=== PATIENT | male | born 1960 | race Caucasian/White ===

== ENCOUNTER 2018-04-15 18:09 | Inpatient (IN) | payer MEDICAID ==
[~2018-04-15] VITALS: Ht 170.2 cm; Wt 81.8 kg
[~2018-04-15 18:09] MED LIST: ASPI-1265 PO; DIVA500T7 PO; FENO145T38 PO; GLYB-97 PO; INSU100V12 SQ; LOVA20TA2 PO; LOVA40TA2 PO; METF1000 PO; METH-360 PO; NITR0.4T48 SL; ONDA8TAB9 PO; PANT-47 PO; ZES10T PO
[2018-04-15 18:47] LABS: BASOPHILS % (AUTO) 0.4 % (0-1); EOSINOPHILS # (AUTO) 0.1 X10'3 (0-0.9); EOSINOPHILS % (AUTO) 1.1 % (0-6); HEMATOCRIT 39.2 % (42.0-52.0); HEMOGLOBIN 13.5 g/dl (14.0-17.9); LYMPHOCYTES # (AUTO) 1.8 X10'3 (1.1-4.8); LYMPHOCYTES % (AUTO) 17.2 % (21-51); MEAN CORPUSCULAR HEMOGLOBIN 30.9 PG (27.0-31.0); MEAN CORPUSCULAR HGB CONC 34.5 % (33.0-36.5); MEAN CORPUSCULAR VOLUME 89.7 FL (78-98); MEAN PLATELET VOLUME 9.6 FL (7.4-10.4); MONOCYTES # (AUTO) 0.5 X10'3 (0-0.9); MONOCYTES % (AUTO) 4.8 % (2-12); NEUTROPHILS % (AUTO) 76.5 % (42-75); PLATELET COUNT 235 X10'3 (140-440); RED BLOOD COUNT 4.37 X10'6 (4.70-6.10); RED CELL DISTRIBUTION WIDTH 14.4 % (11.5-14.5); WHITE BLOOD COUNT 10.4 X10'3 (4.5-11.0)
[2018-04-15 18:53] LABS: INR 1.1 INR; PARTIAL THROMBOPLASTIN TIME 24 SECONDS (22-32); PROTHROMBIN TIME 11.3 SECONDS (9.0-12.0)
[2018-04-15 18:55] LABS: ALANINE AMINOTRANSFERASE 39 U/L (12-78); ALBUMIN 3.5 G/DL (3.4-5.0); ALKALINE PHOSPHATASE 63 IU/L (46-116); ANION GAP 16 (8-16); ASPARTATE AMINO TRANSFERASE 39 U/L (10-37); BILIRUBIN,TOTAL 0.3 MG/DL (0.1-1.0); BLOOD UREA NITROGEN 28 MG/DL (7-18); BUN/CREATININE RATIO 9.6 (5.4-32.0); CALCIUM 9.4 MG/DL (8.5-10.1); CHLORIDE 102 MMOL/L (99-107); CREATININE 2.91 MG/DL (0.60-1.10); GLUCOSE 239 MG/DL (70-104); POTASSIUM 4.2 MMOL/L (3.5-5.1); SODIUM 140 MMOL/L (135-145); TOTAL CARBON DIOXIDE 21.7 MMOL/L (24-32); eGFR 22 ML/MIN
[2018-04-15 18:59] LABS: TROPONIN I 0.07 NG/ML (0.0-0.05)
[2018-04-15] MEDS ORDERED: aspirin 325mg tablet PO ONE (20:40)
[2018-04-15] MEDS ORDERED: ATOR40TA PO (21:04)
[2018-04-15] MEDS ORDERED: normal saline 1000ML IV soln IVB ONE (21:15)
[2018-04-15] MEDS ORDERED: mag hydrox/Alum hydrox/simeth 30ml oral suspension PO PRN (21:40)
[2018-04-15] MEDS ORDERED: ondansetron/PF 4mg/2ml inj IV PRN (21:40)
[2018-04-15] MEDS ORDERED: magnesium hydroxide 30ml (MOM) UD suspension PO PRN (21:40)
[2018-04-15] MEDS ORDERED: acetaminophen 325mg tablet PO PRN (21:40)
[2018-04-15] MEDS ORDERED: insulin Lispro (HumaLOG) vial - multi-dose SQ SCH (21:45)
[2018-04-15] MEDS ORDERED: MESSAGE TO PHARMACY PO ONE (21:45)
[2018-04-15] MEDS ORDERED: glucagon, human recombinant 1mg kit SUBCUT PRN (21:45)
[2018-04-15] MEDS ORDERED: dextrose 50%-water 50ml dispensing syringe IV PRN ×2 (21:45)
[2018-04-15] MEDS ORDERED: dextrose ORAL solution 15 GM/59 ML bottle PO PRN ×2 (21:45)
[2018-04-15 21:54] LABS: VALPROATE 124 UG/ML (50-100)
[2018-04-15 22:01] LABS: HEMOGLOBIN A1C 8.9 % (4.5-6.2)
[2018-04-15 22:41] VITALS: BP 112/49
[2018-04-15] MEDS: normal saline 1000ml 1,000 ML IV SCH (22:47)
[2018-04-16 02:00] VITALS: BP 129/60
[2018-04-16 05:59] LABS: BASOPHILS % (AUTO) 0.5 % (0-1); EOSINOPHILS # (AUTO) 0.2 X10'3 (0-0.9); EOSINOPHILS % (AUTO) 3.5 % (0-6); HEMATOCRIT 35.1 % (42.0-52.0); HEMOGLOBIN 11.8 g/dl (14.0-17.9); LYMPHOCYTES # (AUTO) 2.4 X10'3 (1.1-4.8); LYMPHOCYTES % (AUTO) 44.9 % (21-51); MEAN CORPUSCULAR HEMOGLOBIN 30.5 PG (27.0-31.0); MEAN CORPUSCULAR HGB CONC 33.7 % (33.0-36.5); MEAN CORPUSCULAR VOLUME 90.4 FL (78-98); MEAN PLATELET VOLUME 9.6 FL (7.4-10.4); MONOCYTES # (AUTO) 0.4 X10'3 (0-0.9); MONOCYTES % (AUTO) 7.9 % (2-12); NEUTROPHILS # (AUTO) 2.3 X10'3 (1.8-7.7); NEUTROPHILS % (AUTO) 43.2 % (42-75); PLATELET COUNT 190 X10'3 (140-440); RED BLOOD COUNT 3.88 X10'6 (4.70-6.10); RED CELL DISTRIBUTION WIDTH 14.1 % (11.5-14.5); WHITE BLOOD COUNT 5.2 X10'3 (4.5-11.0)
[2018-04-16 06:00] VITALS: BP 119/62
[2018-04-16 06:17] LABS: ALANINE AMINOTRANSFERASE 34 U/L (12-78); ALBUMIN 2.8 G/DL (3.4-5.0); ALBUMIN/GLOBULIN RATIO 0.9 (1.1-1.5); ALKALINE PHOSPHATASE 46 IU/L (46-116); ANION GAP 7 (8-16); ASPARTATE AMINO TRANSFERASE 29 U/L (10-37); BILIRUBIN,TOTAL 0.3 MG/DL (0.1-1.0); BLOOD UREA NITROGEN 29 MG/DL (7-18); BUN/CREATININE RATIO 16.4 (5.4-32.0); CALCIUM 8.8 MG/DL (8.5-10.1); CHLORIDE 107 MMOL/L (99-107); CHOLESTEROL 141 MG/DL (0-200); CREATININE 1.77 MG/DL (0.60-1.10); GLUCOSE 88 MG/DL (70-104); HDL CHOLESTEROL 28 MG/DL (35-60); LDL CHOLESTEROL 84 MG/DL (50-100); POTASSIUM 4.3 MMOL/L (3.5-5.1); SODIUM 142 MMOL/L (135-145); TOTAL CARBON DIOXIDE 28.4 MMOL/L (24-32); TOTAL PROTEIN 5.8 G/DL (6.4-8.2); TRIGLYCERIDES 156 MG/DL (20-135); eGFR 40 ML/MIN
[2018-04-16] MEDS: normal saline 1000ml 1,000 ML IV SCH ×3 (07:55→20:51)
[2018-04-16] MEDS: atorvastatin 20mg tablet PO SCH (07:57)
[2018-04-16] MEDS: divalproex sodium 500mg tablet.DR PO SCH ×3 (07:57→20:12)
[2018-04-16] MEDS: fenofibrate 145mg tablet PO SCH (07:57)
[2018-04-16] MEDS: lisinopril 10 MG tablet PO SCH (07:58)
[2018-04-16] MEDS: heparin, porcine 5000 units/ml vial SQ SCH ×2 (07:59→20:12)
[2018-04-16] MEDS ORDERED: aspirin 81mg tab.chew PO SCH (08:00)
[2018-04-16 10:00] VITALS: BP 113/55
[2018-04-16 14:00] VITALS: BP 136/68
[2018-04-16 18:00] VITALS: BP 119/56
[2018-04-16] MEDS ORDERED: aspirin 325mg tablet PO ONE (18:15)
[2018-04-16] MEDS ORDERED: insulin glargine (Lantus) pen - multi-dose SQ SCH (21:00)
[2018-04-16 22:00] VITALS: BP 129/63
[2018-04-17 06:00] VITALS: BP 128/71
[2018-04-17 06:03] LABS: BASOPHILS % (AUTO) 0.6 % (0-1); EOSINOPHILS # (AUTO) 0.1 X10'3 (0-0.9); EOSINOPHILS % (AUTO) 3.4 % (0-6); HEMATOCRIT 31.8 % (42.0-52.0); LYMPHOCYTES % (AUTO) 53.6 % (21-51); MEAN CORPUSCULAR HEMOGLOBIN 30.8 PG (27.0-31.0); MEAN CORPUSCULAR HGB CONC 34.5 % (33.0-36.5); MEAN CORPUSCULAR VOLUME 89.4 FL (78-98); MEAN PLATELET VOLUME 9.6 FL (7.4-10.4); MONOCYTES # (AUTO) 0.2 X10'3 (0-0.9); MONOCYTES % (AUTO) 5.7 % (2-12); NEUTROPHILS # (AUTO) 1.4 X10'3 (1.8-7.7); NEUTROPHILS % (AUTO) 36.7 % (42-75); PLATELET COUNT 163 X10'3 (140-440); RED BLOOD COUNT 3.56 X10'6 (4.70-6.10); RED CELL DISTRIBUTION WIDTH 13.9 % (11.5-14.5); WHITE BLOOD COUNT 3.8 X10'3 (4.5-11.0)
[2018-04-17 06:29] LABS: ALANINE AMINOTRANSFERASE 24 U/L (12-78); ALBUMIN 2.5 G/DL (3.4-5.0); ALBUMIN/GLOBULIN RATIO 0.9 (1.1-1.5); ALKALINE PHOSPHATASE 48 IU/L (46-116); ANION GAP 8 (8-16); ASPARTATE AMINO TRANSFERASE 21 U/L (10-37); BILIRUBIN,TOTAL 0.2 MG/DL (0.1-1.0); BLOOD UREA NITROGEN 20 MG/DL (7-18); CHLORIDE 106 MMOL/L (99-107); CREATININE 1.05 MG/DL (0.60-1.10); GLUCOSE 128 MG/DL (70-104); POTASSIUM 3.9 MMOL/L (3.5-5.1); SODIUM 141 MMOL/L (135-145); TOTAL CARBON DIOXIDE 27.1 MMOL/L (24-32); TOTAL PROTEIN 5.4 G/DL (6.4-8.2); eGFR 73 ML/MIN
[2018-04-17] MEDS: atorvastatin 20mg tablet PO SCH (07:34)
[2018-04-17] MEDS: fenofibrate 145mg tablet PO SCH (07:34)
[2018-04-17] MEDS: divalproex sodium 500mg tablet.DR PO SCH (07:34)
[2018-04-17] MEDS: normal saline 1000ml 1,000 ML IV SCH (07:38)
[2018-04-17] MEDS: heparin, porcine 5000 units/ml vial SQ SCH (07:39)
[2018-04-17 07:40] VITALS: BP 157/86
[2018-04-17] MEDS ORDERED: aspirin 325mg tablet PO SCH (08:30)
[2018-04-17] MEDS: lisinopril 10 MG tablet PO SCH (08:53)
[2018-04-17] MEDS ORDERED: ASPI-1 PO (09:01)
[2018-04-17] MEDS ORDERED: ATOR80TA PO (09:01)
[2018-04-17 10:00] VITALS: BP 136/71
== END 2018-04-17 10:37 | disposition home or self-care (01) | DRG 45 ==
LOC: ER 18:10 → ED HOLD 21:39 → ORTHO 4S 22:26
PROVIDERS: ADMIT Internal Medicine; ATTEND Family Medicine
DX: I63.9 Cerebral infarction, unspecified (principal); N17.9 Acute kidney failure, unspecified; E11.22 Type 2 diabetes mellitus with diabetic chronic kidney disease; E11.65 Type 2 diabetes mellitus with hyperglycemia; E86.0 Dehydration; F15.10 Other stimulant abuse, uncomplicated; I12.9 Hypertensive chronic kidney disease with stage 1 through stage 4 chronic kidney disease, or unspecified chronic kidney disease; E78.00 Pure hypercholesterolemia, unspecified; E78.5 Hyperlipidemia, unspecified; F17.210 Nicotine dependence, cigarettes, uncomplicated; G40.909 Epilepsy, unspecified, not intractable, without status epilepticus; N18.9 Chronic kidney disease, unspecified; Z59.0 Homelessness; Z82.3 Family history of stroke; Z91.14 Patient's other noncompliance with medication regimen
CPT/HCPCS: 36415; 70450; 70544; 70551; 71045; 80053; 80061; 80164; 82948; 83036; 84484; 85025; 85610; 85730; 87070; 93306; 93880; 96360; 97116; 97162; 97530; 99285; J1644; J1815; J7030

== ENCOUNTER 2019-05-25 18:01 | Emergency (ER) | payer MEDICAID ==
[~2019-05-25] VITALS: Ht 167.6 cm; Wt 67.3 kg
[~2019-05-25 18:01] MED LIST changes: +ASPI-1 PO; -ASPI-1265 PO; +CLOP75TA9 PO; +DIVA-76 PO; -DIVA500T7 PO; -FENO145T38 PO; -LOVA20TA2 PO; -LOVA40TA2 PO; -METH-360 PO; -NITR0.4T48 SL; -ONDA8TAB9 PO; -PANT-47 PO
[2019-05-25] MEDS ORDERED: ACET-3068 PO (20:37)
[2019-05-25] MEDS ORDERED: HYDROcodone/acetaminophen 5mg/325mg tablet PO ONE (20:40)
[2019-05-25] MEDS ORDERED: ibuprofen tablet 400 MG TABLET PO ONE (20:40)
[2019-05-25 21:02] VITALS: BP 154/84
== END 2019-05-25 21:03 | disposition home or self-care (01) ==
LOC: ER 18:02
DX: S42.031A Displaced fracture of lateral end of right clavicle, initial encounter for closed fracture (principal); E78.00 Pure hypercholesterolemia, unspecified; I10 Essential (primary) hypertension; E11.9 Type 2 diabetes mellitus without complications; F15.90 Other stimulant use, unspecified, uncomplicated; Z79.899 Other long term (current) drug therapy; Z79.4 Long term (current) use of insulin; V19.88XA Pedal cyclist (driver) (passenger) injured in other specified transport accidents, initial encounter; Y93.55 Activity, bike riding; Y92.413 State road as the place of occurrence of the external cause; Y99.9 Unspecified external cause status
CPT/HCPCS: 29105; 71045; 72040; 73030; 99284

== ENCOUNTER → 2019-06-18 | Outpatient (CLI) | payer MEDICAID ==
[~2019-06-18] MED LIST changes: +ACET-3068 PO
[2019-06-18 12:13] VITALS: BP 154/70
== END | disposition home or self-care (01) ==
LOC: ORTHO 11:47
PROVIDERS: ATTEND Orthopaedic Surgery
DX: S42.031D Displaced fracture of lateral end of right clavicle, subsequent encounter for fracture with routine healing (principal); M25.711 Osteophyte, right shoulder; I10 Essential (primary) hypertension; E11.9 Type 2 diabetes mellitus without complications; X58.XXXD Exposure to other specified factors, subsequent encounter
CPT/HCPCS: 73000; G0463

== ENCOUNTER 2019-08-27 12:13 | Outpatient (CLI) | payer MEDICAID ==
[~2019-08-27 12:13] MED LIST changes: -ACET-3068 PO
== END 2019-08-27 13:30 | disposition home or self-care (01) ==
LOC: ORTHO 12:13
PROVIDERS: ATTEND Orthopaedic Surgery
DX: S42.031D Displaced fracture of lateral end of right clavicle, subsequent encounter for fracture with routine healing (principal)
CPT/HCPCS: 73000; G0463

== ENCOUNTER 2019-11-05 15:06 | Emergency (ER) | payer MEDICAID ==
[~2019-11-05] VITALS: Ht 167.6 cm; Wt 68.2 kg
[2019-11-05 15:21] VITALS: BP 164/89
[2019-11-05] MEDS ORDERED: ibuprofen 200mg tablet PO ONE (15:50)
[2019-11-05] MEDS ORDERED: IBUP-1984 PO (16:26)
[2019-11-05] MEDS ORDERED: ACET-75 PO (16:26)
== END 2019-11-05 16:34 | disposition home or self-care (01) ==
LOC: ER 15:07
DX: S80.212A Abrasion, left knee, initial encounter (principal); I10 Essential (primary) hypertension; E78.00 Pure hypercholesterolemia, unspecified; E11.9 Type 2 diabetes mellitus without complications; Z79.82 Long term (current) use of aspirin; Z79.899 Other long term (current) drug therapy; Z79.4 Long term (current) use of insulin; V29.9XXA Motorcycle rider (driver) (passenger) injured in unspecified traffic accident, initial encounter; Y93.I9 Activity, other involving external motion; Y92.89 Other specified places as the place of occurrence of the external cause; Y99.8 Other external cause status
CPT/HCPCS: 29505; 73564; 99284

== ENCOUNTER 2019-11-17 09:48 | Outpatient (CLI) | payer MEDICAID ==
[~2019-11-17 09:48] MED LIST changes: +ACET-75 PO
== END 2019-11-17 09:55 | disposition home or self-care (01) ==
LOC: ORTHO 09:48
PROVIDERS: ATTEND Nurse Practitioner
DX: S42.031D Displaced fracture of lateral end of right clavicle, subsequent encounter for fracture with routine healing (principal); X58.XXXD Exposure to other specified factors, subsequent encounter
CPT/HCPCS: 73000; G0463

== ENCOUNTER 2021-08-15 17:13 | Inpatient (IN) | payer MEDICAID ==
[~2021-08-15] VITALS: Ht 167.6 cm; Wt 63.6 kg
[~2021-08-15 17:13] MED LIST changes: -ACET-75 PO
[2021-08-15 18:15] LABS: BASOPHILS # (AUTO) 0.1 X10'3 (0-0.2); BASOPHILS % (AUTO) 0.8 % (0-1); EOSINOPHILS # (AUTO) 0.1 X10'3 (0-0.9); EOSINOPHILS % (AUTO) 0.7 % (0-6); HEMATOCRIT 38.5 % (42.0-52.0); HEMOGLOBIN 12.8 g/dl (14.0-17.9); LYMPHOCYTES # (AUTO) 0.7 X10'3 (1.1-4.8); LYMPHOCYTES % (AUTO) 5.9 % (21-51); MEAN CORPUSCULAR HEMOGLOBIN 30.7 PG (27.0-31.0); MEAN CORPUSCULAR HGB CONC 33.2 g/dL (33.0-36.5); MEAN CORPUSCULAR VOLUME 92.5 FL (78-98); MEAN PLATELET VOLUME 8.9 FL (7.4-10.4); MONOCYTES # (AUTO) 0.7 X10'3 (0-0.9); MONOCYTES % (AUTO) 6.1 % (2-12); NEUTROPHILS # (AUTO) 10.4 X10'3 (1.8-7.7); NEUTROPHILS % (AUTO) 86.5 % (42-75); PLATELET COUNT 201 X10'3 (140-440); RED BLOOD COUNT 4.17 X10'6 (4.70-6.10); RED CELL DISTRIBUTION WIDTH 13.9 % (11.5-14.5); WHITE BLOOD COUNT 12.1 X10'3 (4.5-11.0)
[2021-08-15 18:30] LABS: ALANINE AMINOTRANSFERASE 54 U/L (12-78); ALBUMIN 1.9 G/DL (3.4-5.0); ALBUMIN/GLOBULIN RATIO 0.5 (1.1-1.5); ALKALINE PHOSPHATASE 176 IU/L (46-116); ANION GAP 9 (8-16); ASPARTATE AMINO TRANSFERASE 40 U/L (10-37); BILIRUBIN,TOTAL 0.6 MG/DL (0.1-1.0); BLOOD UREA NITROGEN 37 MG/DL (7-18); BUN/CREATININE RATIO 28.7 (5.4-32.0); CALCIUM 8.1 MG/DL (8.5-10.1); CHLORIDE 100 MMOL/L (99-107); CREATININE 1.29 MG/DL (0.60-1.10); GLUCOSE 362 MG/DL (70-104); MAGNESIUM 1.9 MG/DL (1.5-2.4); POTASSIUM 4.5 MMOL/L (3.5-5.1); SODIUM 133 MMOL/L (135-145); TOTAL PROTEIN 5.5 G/DL (6.4-8.2); eGFR 57 ML/MIN
[2021-08-15] MEDS ORDERED: vancomycin/NS 1 GM ADD-VANTAGE 250 ML IV ONE (22:05)
[2021-08-15] MEDS ORDERED: cefepime 1GM/NS ADD-VANTAGE 100 ML IV ONE (22:05)
[2021-08-15] MEDS ORDERED: cefepime 1GM in D5W 50mL 50 ML IV ONE (22:07)
[2021-08-15 22:16] LABS: CLARITY,URINE SLIGHTLY CLOUDY (Clear); COLOR,URINE YELLOW (Yellow); GLUCOSE, URINE >=1000 mg/dl (Neg); KETONES,URINE NEGATIVE (Neg); LEUKOCYTE ESTERASE ,URINE NEGATIVE (Neg); NITRITES, URINE NEGATIVE (Neg); OCCULT BLOOD,URINE TRACE-LYSED (Neg); PROTEIN,URINE TRACE mg/dl (Neg); UA COLLECTION TYPE CLN CATCH MIDSTREAM; UROBILINOGEN,URINE 0.2 E.U/dL (0.2-1.0)
[2021-08-15 22:28] LABS: BACTERIA,URINE FEW /HPF (Neg); MUCUS STRANDS FEW /LPF (Neg); SQUAMOUS EPITHELIAL CELL,UR FEW /LPF (FEW)
[2021-08-15 22:29] LABS: RBC,URINE 0-2 /HPF (0-2); WBC,URINE 0-4 /HPF (0-4)
[2021-08-15] MEDS ORDERED: QUET400T PO (23:30)
[2021-08-15] MEDS ORDERED: CHLO25CA10 PO (23:30)
[2021-08-15 23:53] LABS: CREATINE KINASE 196 U/L (39-308)
[2021-08-16] VITALS (10 sets, daily range): BP systolic 102–121; BP diastolic 59–76
[2021-08-16] MEDS ORDERED: bisacodyl 10mg suppository rectal RC PRN (00:15)
[2021-08-16] MEDS ORDERED: acetaminophen 325mg tablet PO PRN ×2 (00:15)
[2021-08-16] MEDS ORDERED: HYDROcodone/acetaminophen 5mg/325mg tablet PO PRN (00:15)
[2021-08-16] MEDS ORDERED: diphenhydrAMINE 50 mg/ml inj IV PRN (00:15)
[2021-08-16] MEDS ORDERED: acetaminophen 650mg rectal suppository RC PRN (00:15)
[2021-08-16] MEDS ORDERED: MESSAGE TO PHARMACY PO ONE (00:15)
[2021-08-16] MEDS ORDERED: ondansetron/PF 4mg/2ml inj IV PRN (00:15)
[2021-08-16] MEDS ORDERED: ondansetron 4mg rapidly disintigrating tab PO PRN (00:15)
[2021-08-16] MEDS ORDERED: morphine 2 MG/ML inj. syringe IV PRN (00:15)
[2021-08-16] MEDS ORDERED: HYDROmorphone inj. 0.5 MG/0.5 ML DISP.SYRIN IV PRN (00:15)
[2021-08-16] MEDS ORDERED: mag hydrox/Alum hydrox/simeth 30ml oral suspension PO PRN (00:15)
[2021-08-16] MEDS ORDERED: dextrose ORAL solution 15 GM/59 ML bottle PO PRN ×2 (00:15)
[2021-08-16] MEDS ORDERED: dextrose 50%-water 50ml dispensing syringe IV PRN ×2 (00:15)
[2021-08-16] MEDS ORDERED: TETanus/Pertussis (Acell)/Diphther VAC/PF (Tdap-Adult) 0.5ml syringe IMVAC ONE (00:15)
[2021-08-16] MEDS ORDERED: glucagon, human recombinant 1mg kit SUBCUT PRN (00:15)
[2021-08-16] MEDS ORDERED: diphenhydrAMINE 25mg capsule PO PRN (00:15)
[2021-08-16] MEDS ORDERED: magnesium hydroxide 30ml (MOM) UD suspension PO PRN (00:15)
[2021-08-16 00:49] LABS: HEMOGLOBIN A1C 12.1 % (4.5-6.2)
[2021-08-16] MEDS: normal saline 1000ml 1,000 ML IV SCH ×2 (00:50→00:51)
[2021-08-16 00:55] LABS: PHOSPHORUS 3.6 MG/DL (2.3-4.5); TROPONIN I 0.05 NG/ML (0.0-0.05)
[2021-08-16 00:57] LABS: PARTIAL THROMBOPLASTIN TIME 27 SECONDS (22-32)
[2021-08-16] MEDS: MESSAGE TO NURSING PO SCH (01:30)
--- NOTE | 2021-08-16 01:46 | NUR ---
PT BACK FROM CTA, INTO THE RESTROOM WITH ASSISTANCE TO HAVE BM
[2021-08-16] MEDS ORDERED: LIRA0.6P2 SUBCUT (01:56)
[2021-08-16] MEDS ORDERED: INSU100I31 SQ (01:56)
[2021-08-16 02:05] LABS: URINE AMPHETAMINE SCREEN POSITIVE (Neg); URINE BARBITUATE SCREEN NEGATIVE (Neg); URINE BENZODIAZEPINES SCREEN NEGATIVE (Neg); URINE CANNABINOID SCREEN NEGATIVE (Neg); URINE COCAINE SCREEN NEGATIVE (Neg); URINE METHADONE SCREEN NEGATIVE (Neg); URINE OPIATE SCREEN NEGATIVE (Neg); URINE PHENCYCLIDINE SCREEN NEGATIVE (Neg)
--- NOTE | 2021-08-16 02:18 | NUR ---
PT'S BED ASSIGNED, 3013A, NOT CLEAN, PER PCU STAFF, WILL TRANSPORT PT WHEN ROOM IS CLEAN
[2021-08-16] MEDS: HYDROcodone/acetaminophen 10/325mg tab PO PRN ×3 (02:28→19:48)
[2021-08-16] MEDS ORDERED: heparin 10,000 units/1 ML INJ IV ONE (03:05)
[2021-08-16] MEDS ORDERED: heparin 25,000 UNIT/250ml bag 250 ML IV SCH (03:05)
[2021-08-16] MEDS ORDERED: heparin 10,000 units/1 ML INJ IV PRN (03:05)
--- NOTE | 2021-08-16 03:45 | NUR ---
patient received to floor. Patient self transfer to bed. He appears in pain. Report pain to R leg but states having previously been given pain med. patient attached to tele monitor. Physical and 2 RN skin assessment done and documented. MRSA and blood specimen collected. Blood sugar assessed. patient is currently laying in bed. Call light and overbed table within reach. Bed in low position.Instructed patient to call for help as needed. Will continue monitor.
--- NOTE | 2021-08-16 06:14 | NUR ---
Patient in room PCU 3013. I have received report from Berta BARROW and had the opportunity to ask questions and assume patient care.
[2021-08-16] MEDS ORDERED: heparin, porcine 5000 units/ml vial SQ SCH (08:00)
[2021-08-16] MEDS: docusate sod 100mg capsule PO SCH ×2 (08:00→19:39)
[2021-08-16] MEDS: pantoprazole 40mg Tablet.DR PO SCH (08:00)
[2021-08-16] MEDS ORDERED: piperacillin/tazo 4.5gm/100ml 100 ML IV SCH (08:00)
[2021-08-16 08:15] LABS: BASOPHILS # (AUTO) 0.1 X10'3 (0-0.2); EOSINOPHILS # (AUTO) 0.2 X10'3 (0-0.9); EOSINOPHILS % (AUTO) 1.4 % (0-6); HEMATOCRIT 36.5 % (42.0-52.0); LYMPHOCYTES % (AUTO) 8.2 % (21-51); MEAN CORPUSCULAR HEMOGLOBIN 30.6 PG (27.0-31.0); MEAN CORPUSCULAR HGB CONC 32.8 g/dL (33.0-36.5); MEAN CORPUSCULAR VOLUME 93.1 FL (78-98); MEAN PLATELET VOLUME 9.3 FL (7.4-10.4); MONOCYTES # (AUTO) 0.8 X10'3 (0-0.9); MONOCYTES % (AUTO) 6.8 % (2-12); NEUTROPHILS % (AUTO) 82.6 % (42-75); PLATELET COUNT 193 X10'3 (140-440); RED BLOOD COUNT 3.92 X10'6 (4.70-6.10); RED CELL DISTRIBUTION WIDTH 14.3 % (11.5-14.5); WHITE BLOOD COUNT 12.1 X10'3 (4.5-11.0)
[2021-08-16 08:31] LABS: ALANINE AMINOTRANSFERASE 50 U/L (12-78); ALBUMIN 1.8 G/DL (3.4-5.0); ALBUMIN/GLOBULIN RATIO 0.5 (1.1-1.5); ALKALINE PHOSPHATASE 204 IU/L (46-116); ANION GAP 9 (8-16); ASPARTATE AMINO TRANSFERASE 30 U/L (10-37); BILIRUBIN,TOTAL 0.5 MG/DL (0.1-1.0); BLOOD UREA NITROGEN 32 MG/DL (7-18); BUN/CREATININE RATIO 28.6 (5.4-32.0); CHLORIDE 103 MMOL/L (99-107); CREATININE 1.12 MG/DL (0.60-1.10); GLUCOSE 282 MG/DL (70-104); SODIUM 135 MMOL/L (135-145); TOTAL CARBON DIOXIDE 22.9 MMOL/L (24-32); TOTAL PROTEIN 5.4 G/DL (6.4-8.2); eGFR 67 ML/MIN
[2021-08-16] MEDS ORDERED: vancomycin/NS 1 GM ADD-VANTAGE 250 ML IV SCH ×2 (10:00→22:00)
--- NOTE | 2021-08-16 10:15 | NUR ---
DM Consult: Pt admit DX RLE cellulitis, meth abuse, and T2DM uncontrolled A1C 12.1 per EMR. Pt seen by BENIGNO this AM; pt reports has had minor education in past regarding DM is agreeable to written ed but would like verbal review at later time. BENIGNO d/w RN regarding carb controlled diet this admit and glycemic protocol if MD agreeable as currently ALIEO w/ arron active in EMR AM Glu 282mg/dl down from 362mg/dl on admit. Pt will benefit from DM Ed reinforcement prior to discharge this admit. Addendum: 08/16/21 at [address] Amended: Links added. Addendum: 08/16/21 at [address] DM Consult: Pt admit DX RLE cellulitis, meth abuse, and T2DM uncontrolled A1C 12.1 per EMR. Pt takes metformin BID, Lantus BID, and daily Victoza per EMR. Pt seen by RD this AM; pt reports has had minor education in past regarding DM is agreeable to written ed but would like verbal review at later time. BENIGNO d/w RN regarding carb controlled diet this admit and glycemic protocol if MD agreeable as currently NPO w/ humalog active in EMR AM Glu 282mg/dl down from 362mg/dl on admit. Pt will benefit from DM Ed reinforcement prior to discharge this admit.
[2021-08-16] MEDS: insulin Lispro (HumaLOG) vial - multi-dose SQ SCH ×3 (10:19→19:58)
[2021-08-16] MEDS: apixaban 5mg tablet PO SCH ×2 (10:23→19:38)
[2021-08-16] MEDS: furosemide 20 MG/2 ML vial IV SCH ×2 (12:52→19:38)
[2021-08-16] MEDS: ceFAZolin/D5W- 1GM premix 50 ML IV SCH (12:58)
--- NOTE | 2021-08-16 18:21 | NUR ---
Problems reprioritized. Patient report given, questions answered & plan of care reviewed with Berta BARROW.
[2021-08-16] MEDS: carVEDilol 3.125mg tablet PO SCH (19:38)
[2021-08-16] MEDS ORDERED: temazepam 15mg capsule PO PRN (21:00)
--- NOTE | 2021-08-16 22:08 | NUR ---
patient nighttime BS 158. Per protocol no corrective insulin needed at this time.
[2021-08-17] MEDS: HYDROcodone/acetaminophen 10/325mg tab PO PRN (00:54)
[2021-08-17] MEDS: ceFAZolin/D5W- 1GM premix 50 ML IV SCH ×4 (00:55→23:44)
[2021-08-17] MEDS: MESSAGE TO NURSING PO SCH (01:35)
[2021-08-17 02:00] VITALS: BP 93/61
[2021-08-17 06:00] VITALS: BP 96/58
--- NOTE | 2021-08-17 06:23 | NUR ---
Patient in room PCU 3013. I have received report from PUSHPA Willard and had the opportunity to ask questions and assume patient care.
--- NOTE | 2021-08-17 06:25 | NUR ---
Problems reprioritized. Patient report given, questions answered & plan of care reviewed with PUSHPA Meek.
[2021-08-17 06:34] LABS: BASOPHILS # (AUTO) 0.1 X10'3 (0-0.2); BASOPHILS % (AUTO) 0.6 % (0-1); EOSINOPHILS # (AUTO) 0.2 X10'3 (0-0.9); EOSINOPHILS % (AUTO) 1.7 % (0-6); HEMATOCRIT 34.1 % (42.0-52.0); HEMOGLOBIN 11.4 g/dl (14.0-17.9); LYMPHOCYTES # (AUTO) 1.2 X10'3 (1.1-4.8); LYMPHOCYTES % (AUTO) 13.3 % (21-51); MEAN CORPUSCULAR HEMOGLOBIN 31.2 PG (27.0-31.0); MEAN CORPUSCULAR HGB CONC 33.6 g/dL (33.0-36.5); MEAN CORPUSCULAR VOLUME 92.9 FL (78-98); MEAN PLATELET VOLUME 9.2 FL (7.4-10.4); MONOCYTES # (AUTO) 0.7 X10'3 (0-0.9); MONOCYTES % (AUTO) 8.2 % (2-12); NEUTROPHILS # (AUTO) 6.9 X10'3 (1.8-7.7); NEUTROPHILS % (AUTO) 76.2 % (42-75); PLATELET COUNT 210 X10'3 (140-440); RED BLOOD COUNT 3.67 X10'6 (4.70-6.10); RED CELL DISTRIBUTION WIDTH 14.3 % (11.5-14.5); WHITE BLOOD COUNT 9.1 X10'3 (4.5-11.0)
[2021-08-17 07:19] LABS: ANION GAP 7 (8-16); BLOOD UREA NITROGEN 31 MG/DL (7-18); BUN/CREATININE RATIO 24.8 (5.4-32.0); CHLORIDE 103 MMOL/L (99-107); CREATININE 1.25 MG/DL (0.60-1.10); GLUCOSE 111 MG/DL (70-104); POTASSIUM 3.8 MMOL/L (3.5-5.1); SODIUM 135 MMOL/L (135-145); TOTAL CARBON DIOXIDE 25.5 MMOL/L (24-32)
[2021-08-17 07:20] LABS: ALANINE AMINOTRANSFERASE 38 U/L (12-78); ALBUMIN 1.6 G/DL (3.4-5.0); ALBUMIN/GLOBULIN RATIO 0.5 (1.1-1.5); ALKALINE PHOSPHATASE 115 IU/L (46-116); ASPARTATE AMINO TRANSFERASE 21 U/L (10-37); BILIRUBIN,TOTAL 0.5 MG/DL (0.1-1.0); CALCIUM 8.1 MG/DL (8.5-10.1); CHOL/HDL RATIO 4.1 (0.00-4.99); CHOLESTEROL 119 MG/DL (0-200); HDL CHOLESTEROL 29 MG/DL (35-60); LDL CHOLESTEROL 73 MG/DL (50-100); TOTAL PROTEIN 5.1 G/DL (6.4-8.2); TRIGLYCERIDES 82 MG/DL (20-135); eGFR 59 ML/MIN
[2021-08-17] MEDS: pantoprazole 40mg Tablet.DR PO SCH (08:29)
[2021-08-17] MEDS: apixaban 5mg tablet PO SCH ×2 (08:29→19:15)
[2021-08-17] MEDS: furosemide 20 MG/2 ML vial IV SCH ×2 (08:29→19:15)
[2021-08-17] MEDS: carVEDilol 3.125mg tablet PO SCH ×2 (08:32→19:15)
[2021-08-17] MEDS: lisinopril 2.5mg tablet PO SCH (08:32)
[2021-08-17] MEDS: docusate sod 100mg capsule PO SCH ×2 (08:33→19:15)
[2021-08-17] MEDS: insulin Lispro (HumaLOG) vial - multi-dose SQ SCH ×3 (08:47→19:13)
[2021-08-17] MEDS: spironolactone 25 MG tablet PO SCH (08:48)
[2021-08-17] MEDS ORDERED: VANCOMYCIN LEVEL IV ONE (09:30)
[2021-08-17] MEDS: morphine 2 MG/ML inj. syringe IV PRN ×2 (09:50→15:51)
[2021-08-17 11:00] VITALS: BP 109/68
[2021-08-17 15:00] VITALS: BP 96/55
[2021-08-17 18:00] VITALS: BP 93/58
--- NOTE | 2021-08-17 18:18 | NUR ---
Patient in room PCU 3013A. I have received report from PUSHPA Meek and had the opportunity to ask questions and assume patient care.
--- NOTE | 2021-08-17 18:20 | NUR ---
Problems reprioritized. Patient report given, questions answered & plan of care reviewed with PUSHPA Tran.
[2021-08-17 22:00] VITALS: BP 102/64
[2021-08-18 02:00] VITALS: BP 109/59
--- NOTE | 2021-08-18 06:02 | NUR ---
Problems reprioritized. Patient report given, questions answered & plan of care reviewed with PUSHPA Meek.
--- NOTE | 2021-08-18 06:16 | NUR ---
Patient in room PCU 3013. I have received report from PUSHPA Tran and had the opportunity to ask questions and assume patient care.
[2021-08-18 06:26] LABS: BASOPHILS # (AUTO) 0.1 X10'3 (0-0.2); BASOPHILS % (AUTO) 0.8 % (0-1); EOSINOPHILS # (AUTO) 0.1 X10'3 (0-0.9); EOSINOPHILS % (AUTO) 0.7 % (0-6); HEMATOCRIT 35.3 % (42.0-52.0); HEMOGLOBIN 11.7 g/dl (14.0-17.9); LYMPHOCYTES # (AUTO) 1.3 X10'3 (1.1-4.8); LYMPHOCYTES % (AUTO) 15.9 % (21-51); MEAN CORPUSCULAR HEMOGLOBIN 30.9 PG (27.0-31.0); MEAN CORPUSCULAR HGB CONC 33.2 g/dL (33.0-36.5); MEAN CORPUSCULAR VOLUME 93.1 FL (78-98); MEAN PLATELET VOLUME 8.9 FL (7.4-10.4); MONOCYTES % (AUTO) 11.6 % (2-12); PLATELET COUNT 258 X10'3 (140-440); RED BLOOD COUNT 3.79 X10'6 (4.70-6.10); RED CELL DISTRIBUTION WIDTH 14.5 % (11.5-14.5); WHITE BLOOD COUNT 8.4 X10'3 (4.5-11.0)
[2021-08-18 06:45] LABS: ALANINE AMINOTRANSFERASE 47 U/L (12-78); ALBUMIN 1.6 G/DL (3.4-5.0); ALBUMIN/GLOBULIN RATIO 0.4 (1.1-1.5); ALKALINE PHOSPHATASE 202 IU/L (46-116); ANION GAP 8 (8-16); ASPARTATE AMINO TRANSFERASE 47 U/L (10-37); BILIRUBIN,TOTAL 0.5 MG/DL (0.1-1.0); BLOOD UREA NITROGEN 31 MG/DL (7-18); BUN/CREATININE RATIO 26.1 (5.4-32.0); CHLORIDE 105 MMOL/L (99-107); CREATININE 1.19 MG/DL (0.60-1.10); GLUCOSE 117 MG/DL (70-104); POTASSIUM 4.4 MMOL/L (3.5-5.1); SODIUM 137 MMOL/L (135-145); TOTAL CARBON DIOXIDE 23.6 MMOL/L (24-32); TOTAL PROTEIN 5.3 G/DL (6.4-8.2); eGFR 62 ML/MIN
[2021-08-18 07:27] VITALS: BP 127/74
[2021-08-18] MEDS: docusate sod 100mg capsule PO SCH ×2 (08:07→19:57)
[2021-08-18] MEDS: carVEDilol 3.125mg tablet PO SCH ×2 (08:08→19:56)
[2021-08-18] MEDS: spironolactone 25 MG tablet PO SCH (08:08)
[2021-08-18] MEDS: furosemide 20 MG/2 ML vial IV SCH ×2 (08:09→19:56)
[2021-08-18] MEDS: pantoprazole 40mg Tablet.DR PO SCH (08:09)
[2021-08-18] MEDS: lisinopril 2.5mg tablet PO SCH (08:09)
[2021-08-18] MEDS: HYDROcodone/acetaminophen 10/325mg tab PO PRN (08:12)
[2021-08-18] MEDS: ceFAZolin/D5W- 1GM premix 50 ML IV SCH ×2 (08:13→16:33)
[2021-08-18] MEDS: insulin Lispro (HumaLOG) vial - multi-dose SQ SCH ×3 (08:16→20:00)
--- NOTE | 2021-08-18 08:30 | NUR ---
Paged Dr Finley re: pt depakote: PAGER ID: [phone] MESSAGE: Eros Wilson [id number] reports taking depakote @home for seizres. none since here. updated in med rec. Gaviota [phone]
--- NOTE | 2021-08-18 08:45 | NUR ---
Paged Dr Finley re: pt depakote: PAGER ID: [phone] MESSAGE: Eros Wilson 3013A c/o seizure like activity. Would you like to continue his depakote? Gaviota [phone]
[2021-08-18] MEDS ORDERED: HYDROcodone/acetaminophen 10/325mg tab PO ONE (09:45)
[2021-08-18] MEDS ORDERED: HYDROcodone/acetaminophen 10/325mg tab PO PRN (09:45)
[2021-08-18] MEDS: divalproex sod 250mg ER (24-hour) tablet PO SCH ×3 (10:29→22:21)
[2021-08-18 11:00] VITALS: BP 93/57
[2021-08-18 15:00] VITALS: BP 104/58
--- NOTE | 2021-08-18 16:40 | NUR ---
F/u for DM consult: Pt seen at bedside for verbal DM education however pt declined and states he has no questions at this time. Pt provided with RD contact information and encouraged to reach out for questions. Pt has already been provided with written materials. Pt states he's getting full from meals and declines need for additional protein at this time. Currently with 75-100% PO intake on CHO controlled diet. Will continue to follow. Addendum: 08/18/21 at [address] Amended: Links added.
[2021-08-18 18:00] VITALS: BP 152/82
--- NOTE | 2021-08-18 18:30 | NUR ---
Patient in room PCU 3013. I have received report from PUSHPA Meek and had the opportunity to ask questions and assume patient care.
--- NOTE | 2021-08-18 18:32 | NUR ---
Problems reprioritized. Patient report given, questions answered & plan of care reviewed with PUSHPA Sanchez and PUSHPA Mccoy.
--- NOTE | 2021-08-18 18:41 | NUR ---
Patient in room PCU 3013. I have received report from PUSHPA Meek and had the opportunity to ask questions and assume patient care.
[2021-08-18 22:00] VITALS: BP 128/64
[2021-08-19] MEDS: ceFAZolin/D5W- 1GM premix 50 ML IV SCH ×2 (01:16→08:20)
[2021-08-19 02:00] VITALS: BP 116/64
[2021-08-19 06:00] VITALS: BP 118/70
--- NOTE | 2021-08-19 06:18 | NUR ---
Problems reprioritized. Patient report given, questions answered & plan of care reviewed with . PUSHPA Meek.
--- NOTE | 2021-08-19 06:19 | NUR ---
I agree with PUSHPA Mccoy, documentation, assessments, and report given to PUSHPA Meek
--- NOTE | 2021-08-19 06:22 | NUR ---
Patient in room PCU 3013. I have received report from Daniel RN and PUSHPA Mccoy and had the opportunity to ask questions and assume patient care.
[2021-08-19 06:50] LABS: BASOPHILS # (AUTO) 0.1 X10'3 (0-0.2); BASOPHILS % (AUTO) 1.2 % (0-1); EOSINOPHILS % (AUTO) 0.5 % (0-6); HEMATOCRIT 35.9 % (42.0-52.0); HEMOGLOBIN 11.8 g/dl (14.0-17.9); LYMPHOCYTES # (AUTO) 1.6 X10'3 (1.1-4.8); LYMPHOCYTES % (AUTO) 18.2 % (21-51); MEAN CORPUSCULAR HEMOGLOBIN 30.7 PG (27.0-31.0); MEAN CORPUSCULAR HGB CONC 32.9 g/dL (33.0-36.5); MEAN CORPUSCULAR VOLUME 93.4 FL (78-98); MONOCYTES # (AUTO) 0.9 X10'3 (0-0.9); MONOCYTES % (AUTO) 10.5 % (2-12); NEUTROPHILS % (AUTO) 69.6 % (42-75); PLATELET COUNT 279 X10'3 (140-440); RED BLOOD COUNT 3.84 X10'6 (4.70-6.10); RED CELL DISTRIBUTION WIDTH 14.6 % (11.5-14.5); WHITE BLOOD COUNT 8.5 X10'3 (4.5-11.0)
[2021-08-19 06:59] LABS: ALANINE AMINOTRANSFERASE 33 U/L (12-78); ALBUMIN 1.6 G/DL (3.4-5.0); ALBUMIN/GLOBULIN RATIO 0.4 (1.1-1.5); ALKALINE PHOSPHATASE 185 IU/L (46-116); ANION GAP 7 (8-16); ASPARTATE AMINO TRANSFERASE 30 U/L (10-37); BILIRUBIN,TOTAL 0.4 MG/DL (0.1-1.0); BLOOD UREA NITROGEN 30 MG/DL (7-18); BUN/CREATININE RATIO 26.8 (5.4-32.0); CALCIUM 8.1 MG/DL (8.5-10.1); CHLORIDE 105 MMOL/L (99-107); CREATININE 1.12 MG/DL (0.60-1.10); GLUCOSE 95 MG/DL (70-104); POTASSIUM 4.9 MMOL/L (3.5-5.1); SODIUM 137 MMOL/L (135-145); TOTAL CARBON DIOXIDE 25.4 MMOL/L (24-32); TOTAL PROTEIN 5.4 G/DL (6.4-8.2); eGFR 67 ML/MIN
[2021-08-19] MEDS: divalproex sod 250mg ER (24-hour) tablet PO SCH (08:16)
[2021-08-19] MEDS: pantoprazole 40mg Tablet.DR PO SCH (08:17)
[2021-08-19] MEDS: docusate sod 100mg capsule PO SCH (08:17)
[2021-08-19] MEDS: spironolactone 25 MG tablet PO SCH (08:18)
[2021-08-19 08:19] VITALS: BP_SYST 118
[2021-08-19] MEDS: lisinopril 2.5mg tablet PO SCH (08:19)
[2021-08-19] MEDS: furosemide 20 MG/2 ML vial IV SCH (08:20)
[2021-08-19] MEDS: carVEDilol 3.125mg tablet PO SCH (08:20)
[2021-08-19] MEDS ORDERED: COR3.125T PO (10:12)
[2021-08-19] MEDS ORDERED: LISI2.5T14 PO (10:12)
[2021-08-19] MEDS ORDERED: HYDR-3972 PO (10:12)
[2021-08-19] MEDS ORDERED: FURO40TA4 PO (10:12)
[2021-08-19] MEDS ORDERED: CLIN150C2 PO (10:12)
[2021-08-19] MEDS ORDERED: SPIR25TA PO (10:12)
[2021-08-19] MEDS: insulin Lispro (HumaLOG) vial - multi-dose SQ SCH (10:53)
--- NOTE | 2021-08-19 12:13 | NUR ---
pt stable for discharge per MD orders. PIV discontinued intact. All belongings collected and sent with patient. All discharge instructions reviewed with patient, who expressed good understanding. 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
[2021-08-23] MEDS ORDERED: apixaban 5mg tablet PO SCH (08:00)
== END 2021-08-19 12:05 | disposition home or self-care (01) | DRG 383 ==
LOC: ER 17:14 → ED HOLD 08-16 00:21 → PCU 3S 08-16 03:16
PROVIDERS: ADMIT Family Medicine; ATTEND Internal Medicine
PROC: BQ2R1ZZ Computerized Tomography (CT Scan) of Right Lower Extremity using Low Osmolar Contrast (ICD-10-PCS; principal; 2021-08-16)
DX: L03.115 Cellulitis of right lower limb (principal); I50.43 Acute on chronic combined systolic (congestive) and diastolic (congestive) heart failure; N17.9 Acute kidney failure, unspecified; E43 Unspecified severe protein-calorie malnutrition; I27.20 Pulmonary hypertension, unspecified; E11.65 Type 2 diabetes mellitus with hyperglycemia; I11.0 Hypertensive heart disease with heart failure; S81.001A Unspecified open wound, right knee, initial encounter; E78.00 Pure hypercholesterolemia, unspecified; E78.5 Hyperlipidemia, unspecified; F15.129 Other stimulant abuse with intoxication, unspecified; G40.909 Epilepsy, unspecified, not intractable, without status epilepticus; Z79.899 Other long term (current) drug therapy; Z28.21 Immunization not carried out because of patient refusal; Z68.22 Body mass index [BMI] 22.0-22.9, adult; Y93.89 Activity, other specified; Y92.89 Other specified places as the place of occurrence of the external cause; Y99.8 Other external cause status; V19.9XXA Pedal cyclist (driver) (passenger) injured in unspecified traffic accident, initial encounter
CPT/HCPCS: 36415; 71045; 73701; 80053; 80061; 80305; 81001; 82550; 82948; 83036; 83605; 83735; 83880; 84100; 84145; 84484; 85025; 85610; 85730; 87040; 87081; 90715; 93005; 93306; 93971; 96365; 96366; 97116; 97161; 97530; 99285; G0378; J0690; J0692; J1644; J1815; J1940; J2270; J3370; J7030

== ENCOUNTER 2021-08-23 19:22 | Emergency (ER) | payer MEDICAID ==
[~2021-08-23] VITALS: Ht 167.6 cm; Wt 68.2 kg
[~2021-08-23 19:22] MED LIST changes: -ASPI-1 PO; +CLIN150C2 PO; -CLOP75TA9 PO; +COR3.125T PO; +FURO40TA4 PO; -GLYB-97 PO; +HYDR-3972 PO; +INSU100I31 SQ; -INSU100V12 SQ; +LIRA0.6P2 SUBCUT; +LISI2.5T14 PO; +SPIR25TA PO; -ZES10T PO
[2021-08-23 21:30] LABS: BASOPHILS % (AUTO) 0.6 % (0-1); EOSINOPHILS % (AUTO) 0 % (0-6); HEMATOCRIT 36.7 % (42.0-52.0); LYMPHOCYTES % (AUTO) 15.5 % (21-51); MEAN CORPUSCULAR HEMOGLOBIN 30.3 PG (27.0-31.0); MEAN CORPUSCULAR HGB CONC 32.6 g/dL (33.0-36.5); MEAN PLATELET VOLUME 8.2 FL (7.4-10.4); MONOCYTES # (AUTO) 0.6 X10'3 (0-0.9); MONOCYTES % (AUTO) 8.5 % (2-12); NEUTROPHILS # (AUTO) 4.9 X10'3 (1.8-7.7); NEUTROPHILS % (AUTO) 75.4 % (42-75); PLATELET COUNT 338 X10'3 (140-440); RED BLOOD COUNT 3.94 X10'6 (4.70-6.10); RED CELL DISTRIBUTION WIDTH 14.1 % (11.5-14.5); WHITE BLOOD COUNT 6.5 X10'3 (4.5-11.0)
[2021-08-23 21:41] LABS: ALANINE AMINOTRANSFERASE 32 U/L (12-78); ALBUMIN 1.9 G/DL (3.4-5.0); ALBUMIN/GLOBULIN RATIO 0.4 (1.1-1.5); ALKALINE PHOSPHATASE 185 IU/L (46-116); ANION GAP 7 (8-16); ASPARTATE AMINO TRANSFERASE 27 U/L (10-37); BILIRUBIN,TOTAL 0.3 MG/DL (0.1-1.0); BLOOD UREA NITROGEN 34 MG/DL (7-18); CALCIUM 8.1 MG/DL (8.5-10.1); CHLORIDE 103 MMOL/L (99-107); CREATININE 1.26 MG/DL (0.60-1.10); D-DIMER 1.79 MG/L FEU (0-0.50); GLUCOSE 184 MG/DL (70-104); PARTIAL THROMBOPLASTIN TIME 26 SECONDS (22-32); POTASSIUM 4.6 MMOL/L (3.5-5.1); SODIUM 138 MMOL/L (135-145); TOTAL PROTEIN 6.5 G/DL (6.4-8.2); eGFR 58 ML/MIN
[2021-08-23 21:50] LABS: C-REACTIVE PROTEIN 6.15 MG/DL (0.0-0.5); MAGNESIUM 1.9 MG/DL (1.5-2.4)
[2021-08-23] MEDS ORDERED: vancomycin/NS 1 GM ADD-VANTAGE 250 ML IV ONE (22:30)
--- NOTE | 2021-08-24 01:21 | NUR ---
VASC PAGED [phone]
--- NOTE | 2021-08-24 02:29 | NUR ---
VASCULAR AT BEDSIDE
[2021-08-24 06:36] VITALS: BP 123/67
== END 2021-08-24 08:24 | disposition home or self-care (01) ==
LOC: ER 19:23
DX: L03.115 Cellulitis of right lower limb (principal); R05.9 Cough, unspecified; E78.00 Pure hypercholesterolemia, unspecified; I10 Essential (primary) hypertension; E11.9 Type 2 diabetes mellitus without complications; F15.90 Other stimulant use, unspecified, uncomplicated; Z86.69 Personal history of other diseases of the nervous system and sense organs; Z98.890 Other specified postprocedural states; Z79.899 Other long term (current) drug therapy
CPT/HCPCS: 36415; 73564; 80053; 83605; 83735; 83880; 84145; 84443; 84484; 85025; 85379; 85610; 85730; 86140; 93005; 93970; 96365; 96366; 99285; J3370

== ENCOUNTER 2021-12-16 03:13 | Inpatient (IN) | payer MEDICAID ==
[2021-12-16] VITALS (11 sets, daily range): BP systolic 106–122; BP diastolic 67–80
[~2021-12-16] VITALS: Ht 165.1 cm; Wt 76.4 kg
[~2021-12-16 03:13] MED LIST changes: -CLIN150C2 PO; -FURO40TA4 PO
[2021-12-16 04:03] LABS: BASOPHILS # (AUTO) 0.1 X10'3 (0-0.2); BASOPHILS % (AUTO) 0.9 % (0-1); EOSINOPHILS % (AUTO) 0.2 % (0-6); HEMATOCRIT 45.3 % (42.0-52.0); HEMOGLOBIN 14.6 g/dl (14.0-17.9); LYMPHOCYTES # (AUTO) 0.9 X10'3 (1.1-4.8); LYMPHOCYTES % (AUTO) 12.6 % (21-51); MEAN CORPUSCULAR HEMOGLOBIN 29.9 PG (27.0-31.0); MEAN CORPUSCULAR HGB CONC 32.3 g/dL (33.0-36.5); MEAN CORPUSCULAR VOLUME 92.6 FL (78-98); MEAN PLATELET VOLUME 8.8 FL (7.4-10.4); MONOCYTES # (AUTO) 0.8 X10'3 (0-0.9); MONOCYTES % (AUTO) 10.1 % (2-12); NEUTROPHILS # (AUTO) 5.7 X10'3 (1.8-7.7); NEUTROPHILS % (AUTO) 76.2 % (42-75); PLATELET COUNT 221 X10'3 (140-440); RED BLOOD COUNT 4.89 X10'6 (4.70-6.10); RED CELL DISTRIBUTION WIDTH 16.2 % (11.5-14.5); WHITE BLOOD COUNT 7.5 X10'3 (4.5-11.0)
[2021-12-16] MEDS ORDERED: dextrose 50%-water 50ml dispensing syringe IV ONE ×2 (04:05→08:34)
[2021-12-16 04:39] LABS: ALANINE AMINOTRANSFERASE 264 U/L (12-78); ALBUMIN 2.5 G/DL (3.4-5.0); ALBUMIN/GLOBULIN RATIO 0.8 (1.1-1.5); ALKALINE PHOSPHATASE 280 IU/L (46-116); ANION GAP 11 (8-16); ASPARTATE AMINO TRANSFERASE 344 U/L (10-37); BILIRUBIN,TOTAL 1.5 MG/DL (0.1-1.0); BLOOD UREA NITROGEN 42 MG/DL (7-18); BUN/CREATININE RATIO 19.3 (5.4-32.0); CALCIUM 7.6 MG/DL (8.5-10.1); CHLORIDE 105 MMOL/L (99-107); CREATININE 2.18 MG/DL (0.60-1.10); GLUCOSE 85 MG/DL (70-104); POTASSIUM 4.7 MMOL/L (3.5-5.1); SODIUM 141 MMOL/L (135-145); TOTAL CARBON DIOXIDE 24.8 MMOL/L (24-32); TOTAL PROTEIN 5.8 G/DL (6.4-8.2); eGFR 31 ML/MIN
[2021-12-16] MEDS ORDERED: methylPREDNISolone sod succ 125mg/2ml vial IV ONE (05:45)
[2021-12-16] MEDS ORDERED: albuterol 2.5 MG/3 ML nebule NEB ONE (05:45)
[2021-12-16 05:52] LABS: MAGNESIUM 1.4 MG/DL (1.5-2.4)
[2021-12-16 05:56] LABS: ETHANOL < 0.010 GM/DL (0.0-0.010)
[2021-12-16] MEDS ORDERED: iohexol 350MG/ML 100ml bottle IV ONE (06:06)
[2021-12-16] MEDS ORDERED: ALBUTEROL INHALER 1 PUFF/90 MCG INHALER IH PRN (06:15)
[2021-12-16] MEDS ORDERED: albuterol 2.5 MG/3 ML nebule CONTNEB PRN ×2 (06:15→06:45)
[2021-12-16] MEDS ORDERED: heparin 10,000 units/1 ML INJ IV ONE ×3 (06:20→14:20)
[2021-12-16] MEDS ORDERED: heparin 25,000 UNIT/250ml bag 250 ML IV SCH (06:20)
[2021-12-16 06:36] LABS: C-REACTIVE PROTEIN 2.25 MG/DL (0.0-0.5)
--- NOTE | 2021-12-16 06:47 | NUR ---
Pt to be placed on c-pap and receive continuous med neb.
[2021-12-16] MEDS ORDERED: valproate sod inj 1,000 MG in normal saline 50ml IV soln 50 ML IV ONE (06:55)
[2021-12-16] MEDS ORDERED: LORazepam 2 mg/ml vial IV ONE (06:55)
[2021-12-16] MEDS ORDERED: VALPROATE SOD IV ONE (07:02)
[2021-12-16] MEDS ORDERED: DEXTROSE 5% IV ONE (07:02)
[2021-12-16] MEDS ORDERED: WATER IV ONE (07:02)
[2021-12-16] MEDS ORDERED: furosemide 10 MG/1 ML 10ml inj IV ONE (07:35)
--- NOTE | 2021-12-16 07:43 | NUR ---
Heparin on hold until PTT completed, MD Milagros aware.
--- NOTE | 2021-12-16 08:23 | NUR ---
Labs drawn and are pending, to continue and hold heparin till PTT results completed and to administer Depakote now per VO Dr. Linares.
--- NOTE | 2021-12-16 08:30 | NUR ---
PT BLOOD GLUCOSE READING OF 40 REPORTED TO MD CHILD. PT TO RECEIVE 1/2 AMP OF D50 AND MD TO PLACE D10 IV FLUID ORDER IN
[2021-12-16 08:31] LABS: CLARITY,URINE SLIGHTLY CLOUDY (Clear); GLUCOSE, URINE 100 mg/dl (Neg); KETONES,URINE NEGATIVE (Neg); LEUKOCYTE ESTERASE ,URINE TRACE (Neg); NITRITES, URINE NEGATIVE (Neg); OCCULT BLOOD,URINE TRACE-LYSED (Neg); PH,URINE 5.5 (4.8-8.0); PROTEIN,URINE 100 mg/dl (Neg)
[2021-12-16 08:34] LABS: COLOR,URINE AMBER (Yellow); UA COLLECTION TYPE URINAL
[2021-12-16] MEDS ORDERED: sodium chloride inj. 154 MEQ in Dextrose 10%-water IV solution 961.5 ML IV SCH (08:35)
[2021-12-16 08:37] LABS: BACTERIA,URINE FEW /HPF (Neg); MUCUS STRANDS NONE SEEN /LPF (Neg); RBC,URINE 0-2 /HPF (0-2); RENAL CELLS, URINE FEW /HPF; SQUAMOUS EPITHELIAL CELL,UR NONE SEEN /LPF (FEW)
[2021-12-16 08:38] LABS: FINE GRANULAR CAST 0-3 /LPF (NEGATIVE); HYALINE CASTS 0-3 /LPF (NEGATIVE)
[2021-12-16 08:48] LABS: URINE AMPHETAMINE SCREEN POSITIVE (Neg); URINE BARBITUATE SCREEN NEGATIVE (Neg); URINE BENZODIAZEPINES SCREEN NEGATIVE (Neg); URINE CANNABINOID SCREEN NEGATIVE (Neg); URINE COCAINE SCREEN NEGATIVE (Neg); URINE METHADONE SCREEN NEGATIVE (Neg); URINE OPIATE SCREEN NEGATIVE (Neg); URINE PHENCYCLIDINE SCREEN NEGATIVE (Neg)
[2021-12-16] MEDS: Dextrose 10%-water IV solution 1,000 ML IV SCH (08:57)
[2021-12-16 09:26] LABS: APTT 28 SECONDS (22-32); D-DIMER 9.61 MG/L FEU (0-0.50)
[2021-12-16 11:11] LABS: ABG HCO3 19.1 mmol/L (22.0-26.0); ABG OXYGEN SATURATION 98.1 % (94-97); ABG PCO2 (T) 30.1 mmHg (35.0-48.0); ABG PO2 (T) 113.1 mmHg (75.0-100.0); ALLEN'S TEST POSITIVE; FCOHb 0.8 % (0.0-3.9); FMetHb 0.3 % (0.0-1.5); RESPIRATORY RATE 10 b/min; TOTAL HEMOGLOBIN 14.6 G/dl (14.0-18.0)
--- NOTE | 2021-12-16 11:14 | NUR ---
Pts room mate Tasha called and left contact number: Room mate reports pt came home from work last night around 1030 PM and reported he did not feel well. Pt had then layed on the couch and fell asleep. Pts room mate fell asleep in living room while watching TV and awoke around [id number] AM to pt breathing loudly and labored. Room mate was unable to awake pt and called 911.
[2021-12-16] MEDS ORDERED: ondansetron/PF 4mg/2ml inj IV PRN (11:50)
[2021-12-16] MEDS ORDERED: magnesium hydroxide 30ml (MOM) UD suspension PO PRN (11:50)
[2021-12-16] MEDS ORDERED: mag hydrox/Alum hydrox/simeth 30ml oral suspension PO PRN (11:50)
[2021-12-16] MEDS ORDERED: magnesium 2GM in 50ml NS 50 ML IV PRN (11:50)
[2021-12-16] MEDS ORDERED: magnesium 4gm in 100ml NS 100 ML IV PRN (11:50)
[2021-12-16] MEDS ORDERED: magnesium Cl slow-release 64mg tablet PO PRN (11:50)
[2021-12-16] MEDS ORDERED: dextrose 50%-water 50ml dispensing syringe IV PRN ×2 (12:10)
[2021-12-16] MEDS ORDERED: DEXTROSE 15 GM of carb/4 tabs (each vial/BOTTLE has 4 tablets) PO PRN ×2 (12:10)
[2021-12-16] MEDS ORDERED: MESSAGE TO PHARMACY PO ONE (12:10)
[2021-12-16] MEDS ORDERED: glucagon, human recombinant 1mg kit SUBCUT PRN (12:10)
--- NOTE | 2021-12-16 12:28 | NUR ---
Gave report to Jennifer of CICU, pt to be going to bed 301
[2021-12-16 12:41] LABS: HEMOGLOBIN A1C 10.3 % (4.5-6.2)
[2021-12-16] MEDS ORDERED: TOCILIZUMAB IV ONE (13:30)
[2021-12-16] MEDS ORDERED: NORMAL SALINE IV ONE (13:30)
--- NOTE | 2021-12-16 13:30 | NUR ---
Received report from Maryam BARROW. Received patient from ER via rsanderson. Patient drowsy but awakens to verbal stimuli. Follows commands. Sats 100% on NRB mask. Transitioned to salter cannula and sats remained 100% with normal RR. Patient denies having any dyspnea & no distress noted. Hemodynamically stable. Heparin gtt infusing @ 900 units/hr.
[2021-12-16] MEDS: dexamethasone inj 6 MG in dextrose 5%-water 50ml 50 ML IV SCH (13:42)
[2021-12-16] MEDS: heparin 25,000 UNIT/250ml bag 250 ML IV SCH ×4 (14:20→15:13)
[2021-12-16] MEDS ORDERED: SPIR25TA5 PO (14:55)
[2021-12-16] MEDS ORDERED: FURO40TA4 PO (14:55)
[2021-12-16] MEDS ORDERED: CARV3.122 PO (14:55)
[2021-12-16 15:13] LABS: MAGNESIUM 1.1 MG/DL (1.5-2.4); POTASSIUM 4.6 MMOL/L (3.5-5.1)
[2021-12-16] MEDS ORDERED: heparin, porcine 5000 units/ml vial SQ SCH (16:00)
--- NOTE | 2021-12-16 17:32 | NUR ---
Remains drowsy. BG 201. Order obtained to decrease D10 to 25 ml/hr. Hemodynamically stable. Sats 100% on 4 L n/c. No resp distress.
--- NOTE | 2021-12-16 18:15 | NUR ---
Problems reprioritized. Patient report given, questions answered & plan of care reviewed with Puneet BARROW.
[2021-12-16] MEDS: K and/or MAG REPLACEMENT MC SCH (19:09)
[2021-12-16] MEDS: docusate sod 100mg capsule PO SCH (19:58)
[2021-12-17] VITALS (35 sets, daily range): BP systolic 94–137; BP diastolic 59–91
[2021-12-17 03:06] LABS: BASOPHILS % (AUTO) 0.1 % (0-1); EOSINOPHILS % (AUTO) 0 % (0-6); HEMATOCRIT 42.8 % (42.0-52.0); HEMOGLOBIN 13.8 g/dl (14.0-17.9); LYMPHOCYTES # (AUTO) 0.7 X10'3 (1.1-4.8); LYMPHOCYTES % (AUTO) 5.4 % (21-51); MEAN CORPUSCULAR HEMOGLOBIN 29.9 PG (27.0-31.0); MEAN CORPUSCULAR HGB CONC 32.3 g/dL (33.0-36.5); MEAN CORPUSCULAR VOLUME 92.4 FL (78-98); MONOCYTES # (AUTO) 0.8 X10'3 (0-0.9); MONOCYTES % (AUTO) 6.1 % (2-12); NEUTROPHILS # (AUTO) 12.1 X10'3 (1.8-7.7); NEUTROPHILS % (AUTO) 88.4 % (42-75); PLATELET COUNT 170 X10'3 (140-440); RED BLOOD COUNT 4.63 X10'6 (4.70-6.10); RED CELL DISTRIBUTION WIDTH 16.5 % (11.5-14.5); WHITE BLOOD COUNT 13.7 X10'3 (4.5-11.0)
[2021-12-17 03:39] LABS: ALANINE AMINOTRANSFERASE 211 U/L (12-78); ALBUMIN 1.7 G/DL (3.4-5.0); ALBUMIN/GLOBULIN RATIO 0.6 (1.1-1.5); ALKALINE PHOSPHATASE 153 IU/L (46-116); ANION GAP 13 (8-16); ASPARTATE AMINO TRANSFERASE 196 U/L (10-37); BLOOD UREA NITROGEN 55 MG/DL (7-18); BUN/CREATININE RATIO 23.7 (5.4-32.0); C-REACTIVE PROTEIN 7.86 MG/DL (0.0-0.5); CHLORIDE 104 MMOL/L (99-107); CREATININE 2.32 MG/DL (0.60-1.10); GLUCOSE 237 MG/DL (70-104); MAGNESIUM 1.3 MG/DL (1.5-2.4); PHOSPHORUS 6.5 MG/DL (2.3-4.5); POTASSIUM 4.8 MMOL/L (3.5-5.1); SODIUM 139 MMOL/L (135-145); TOTAL CARBON DIOXIDE 21.8 MMOL/L (24-32); TOTAL PROTEIN 4.7 G/DL (6.4-8.2); eGFR 29 ML/MIN
[2021-12-17 03:41] LABS: D-DIMER 8.27 MG/L FEU (0-0.50)
[2021-12-17] MEDS ORDERED: glucagon, human recombinant 1mg kit SUBCUT PRN (04:55)
[2021-12-17] MEDS ORDERED: DEXTROSE 15 GM of carb/4 tabs (each vial/BOTTLE has 4 tablets) PO PRN ×2 (04:55)
[2021-12-17] MEDS ORDERED: dextrose 50%-water 50ml dispensing syringe IV PRN ×2 (04:55)
[2021-12-17 06:45] LABS: HIV ANTIBODY 1&2 RAPID NON-REACTIVE (Neg)
[2021-12-17] MEDS: dexamethasone inj 6 MG in dextrose 5%-water 50ml 50 ML IV SCH (07:59)
[2021-12-17] MEDS: docusate sod 100mg capsule PO SCH ×2 (07:59→20:08)
[2021-12-17] MEDS: cefepime 1GM in D5W 50mL 50 ML IV SCH ×2 (08:00→20:07)
[2021-12-17] MEDS: K and/or MAG REPLACEMENT MC SCH ×2 (08:00→20:00)
[2021-12-17] MEDS: insulin Lispro (HumaLOG) vial - multi-dose SQ SCH ×3 (08:08→17:55)
--- NOTE | 2021-12-17 08:20 | NUR ---
Diabetes consult: Pt admitted w/ ARDS, acute respiratory failure, and hypoglycemia per EMR, has hx of DM and reportedly takes metformin and basaglar at home, A1c 10.3. DM ed not appropriate at this time given admitting dx, will f/u w/ DM ed once pt more appropriate this admit Addendum: 12/17/21 at [address] Amended: Links added.
[2021-12-17] MEDS: heparin 25,000 UNIT/250ml bag 250 ML IV SCH ×2 (09:03→13:15)
[2021-12-17] MEDS: heparin 10,000 units/1 ML INJ IV PRN ×2 (09:40→22:48)
[2021-12-17] MEDS: Dextrose 10%-water IV solution 1,000 ML IV SCH (15:36)
[2021-12-17] MEDS: divalproex sodium 500mg tablet.DR PO SCH ×2 (15:36→20:08)
[2021-12-18] VITALS (29 sets, daily range): BP systolic 121–156; BP diastolic 70–101
[2021-12-18 05:48] LABS: BASOPHILS # (AUTO) 0.1 X10'3 (0-0.2); BASOPHILS % (AUTO) 0.7 % (0-1); EOSINOPHILS % (AUTO) 0 % (0-6); HEMATOCRIT 41.5 % (42.0-52.0); HEMOGLOBIN 13.4 g/dl (14.0-17.9); LYMPHOCYTES # (AUTO) 0.6 X10'3 (1.1-4.8); LYMPHOCYTES % (AUTO) 3.6 % (21-51); MEAN CORPUSCULAR HEMOGLOBIN 29.8 PG (27.0-31.0); MEAN CORPUSCULAR HGB CONC 32.2 g/dL (33.0-36.5); MEAN CORPUSCULAR VOLUME 92.4 FL (78-98); MEAN PLATELET VOLUME 9.5 FL (7.4-10.4); MONOCYTES # (AUTO) 0.9 X10'3 (0-0.9); MONOCYTES % (AUTO) 5.5 % (2-12); NEUTROPHILS # (AUTO) 14.1 X10'3 (1.8-7.7); NEUTROPHILS % (AUTO) 90.2 % (42-75); PLATELET COUNT 180 X10'3 (140-440); RED BLOOD COUNT 4.49 X10'6 (4.70-6.10); RED CELL DISTRIBUTION WIDTH 16.1 % (11.5-14.5); WHITE BLOOD COUNT 15.7 X10'3 (4.5-11.0)
[2021-12-18 06:03] LABS: D-DIMER 3.35 MG/L FEU (0-0.50)
[2021-12-18 06:17] LABS: ALANINE AMINOTRANSFERASE 319 U/L (12-78); ALBUMIN/GLOBULIN RATIO 0.6 (1.1-1.5); ALKALINE PHOSPHATASE 190 IU/L (46-116); ANION GAP 11 (8-16); ASPARTATE AMINO TRANSFERASE 236 U/L (10-37); BILIRUBIN,TOTAL 0.6 MG/DL (0.1-1.0); BLOOD UREA NITROGEN 63 MG/DL (7-18); BUN/CREATININE RATIO 36.6 (5.4-32.0); C-REACTIVE PROTEIN 4.84 MG/DL (0.0-0.5); CALCIUM 6.9 MG/DL (8.5-10.1); CHLORIDE 102 MMOL/L (99-107); CREATININE 1.72 MG/DL (0.60-1.10); GLUCOSE 304 MG/DL (70-104); MAGNESIUM 1.6 MG/DL (1.5-2.4); POTASSIUM 4.9 MMOL/L (3.5-5.1); SODIUM 135 MMOL/L (135-145); TOTAL CARBON DIOXIDE 21.9 MMOL/L (24-32); TOTAL PROTEIN 5.1 G/DL (6.4-8.2); eGFR 41 ML/MIN
[2021-12-18] MEDS ORDERED: cefepime 1GM in D5W 50mL 50 ML IV SCH (08:00)
[2021-12-18] MEDS: K and/or MAG REPLACEMENT MC SCH ×2 (08:00→20:00)
[2021-12-18] MEDS ORDERED: VANCOMYCIN 750MG IV in NS 250 ML IV SCH (08:00)
[2021-12-18] MEDS: VANCOMYCIN 1GM/200ML IVPB 200 ML IV SCH (08:50)
[2021-12-18] MEDS: docusate sod 100mg capsule PO SCH ×2 (08:50→20:46)
[2021-12-18] MEDS: dexamethasone inj 6 MG in dextrose 5%-water 50ml 50 ML IV SCH (08:51)
[2021-12-18] MEDS: divalproex sodium 500mg tablet.DR PO SCH ×3 (08:51→20:46)
[2021-12-18] MEDS: insulin Lispro (HumaLOG) vial - multi-dose SQ SCH ×4 (09:00→20:57)
[2021-12-18] MEDS: heparin, porcine 5000 units/ml vial SQ SCH ×2 (13:05→20:46)
--- NOTE | 2021-12-18 16:33 | NUR ---
Patient in room CICU 2011. I have received report from Kindra BARROW and had the opportunity to ask questions and assume patient care.
--- NOTE | 2021-12-18 17:01 | NUR ---
Patient transferred to room 4021 at this time.
--- NOTE | 2021-12-18 18:21 | NUR ---
Patient in room ORTHO 4021. I have received report from PUSHPA MATT and had the opportunity to ask questions and assume patient care.
[2021-12-18] MEDS: carVEDilol 3.125mg tablet PO SCH (20:46)
[2021-12-19 01:40] VITALS: BP 128/78
[2021-12-19] MEDS: heparin, porcine 5000 units/ml vial SQ SCH ×3 (04:31→19:12)
--- NOTE | 2021-12-19 06:05 | NUR ---
Patient in room ORTHO 4021b. I have received report from Maia BARROW and had the opportunity to ask questions and assume patient care.
--- NOTE | 2021-12-19 06:27 | NUR ---
Problems reprioritized. Patient report given, questions answered & plan of care reviewed with PUSHPA WORTHINGTON.
[2021-12-19 06:44] VITALS: BP 148/100
[2021-12-19] MEDS: divalproex sodium 500mg tablet.DR PO SCH ×3 (06:58→21:43)
[2021-12-19] MEDS: furosemide 40mg tablet PO SCH (06:58)
[2021-12-19] MEDS: carVEDilol 3.125mg tablet PO SCH ×2 (06:58→19:12)
[2021-12-19] MEDS: spironolactone 25 MG tablet PO SCH (06:59)
[2021-12-19] MEDS: docusate sod 100mg capsule PO SCH ×2 (06:59→21:43)
[2021-12-19] MEDS: insulin Lispro (HumaLOG) vial - multi-dose SQ SCH ×4 (07:12→19:11)
[2021-12-19] MEDS: VANCOMYCIN 1GM/200ML IVPB 200 ML IV SCH (07:13)
[2021-12-19] MEDS: dexamethasone inj 6 MG in dextrose 5%-water 50ml 50 ML IV SCH (07:13)
[2021-12-19 07:31] LABS: BASOPHILS % (AUTO) 0.1 % (0-1); EOSINOPHILS % (AUTO) 0 % (0-6); HEMATOCRIT 40.6 % (42.0-52.0); HEMOGLOBIN 13.2 g/dl (14.0-17.9); LYMPHOCYTES # (AUTO) 0.9 X10'3 (1.1-4.8); LYMPHOCYTES % (AUTO) 6.3 % (21-51); MEAN CORPUSCULAR HEMOGLOBIN 29.7 PG (27.0-31.0); MEAN CORPUSCULAR HGB CONC 32.5 g/dL (33.0-36.5); MEAN CORPUSCULAR VOLUME 91.2 FL (78-98); MEAN PLATELET VOLUME 9.2 FL (7.4-10.4); MONOCYTES # (AUTO) 0.8 X10'3 (0-0.9); MONOCYTES % (AUTO) 5.4 % (2-12); NEUTROPHILS % (AUTO) 88.2 % (42-75); PLATELET COUNT 182 X10'3 (140-440); RED BLOOD COUNT 4.45 X10'6 (4.70-6.10); RED CELL DISTRIBUTION WIDTH 16.6 % (11.5-14.5); WHITE BLOOD COUNT 14.7 X10'3 (4.5-11.0)
[2021-12-19 07:41] LABS: D-DIMER 2.55 MG/L FEU (0-0.50)
[2021-12-19 07:51] LABS: ALANINE AMINOTRANSFERASE 317 U/L (12-78); ALBUMIN/GLOBULIN RATIO 0.7 (1.1-1.5); ALKALINE PHOSPHATASE 151 IU/L (46-116); ANION GAP 9 (8-16); ASPARTATE AMINO TRANSFERASE 205 U/L (10-37); BILIRUBIN,TOTAL 0.6 MG/DL (0.1-1.0); BLOOD UREA NITROGEN 50 MG/DL (7-18); BUN/CREATININE RATIO 40.3 (5.4-32.0); C-REACTIVE PROTEIN 2.31 MG/DL (0.0-0.5); CALCIUM 7.6 MG/DL (8.5-10.1); CHLORIDE 107 MMOL/L (99-107); CREATININE 1.24 MG/DL (0.60-1.10); GLUCOSE 128 MG/DL (70-104); MAGNESIUM 1.7 MG/DL (1.5-2.4); PHOSPHORUS 2.6 MG/DL (2.3-4.5); POTASSIUM 4.8 MMOL/L (3.5-5.1); SODIUM 139 MMOL/L (135-145); TOTAL CARBON DIOXIDE 22.8 MMOL/L (24-32); TOTAL PROTEIN 4.9 G/DL (6.4-8.2); eGFR 59 ML/MIN
[2021-12-19] MEDS: K and/or MAG REPLACEMENT MC SCH ×2 (08:00→20:00)
[2021-12-19 10:00] VITALS: BP 144/85
[2021-12-19 10:15] LABS: HBSAG SCREEN Negative (Negative); HEP A AB, IGM Negative (Negative); HEPATITIS C ANTIBODY <0.1 s/co ratio (0.0-0.9)
[2021-12-19 14:00] VITALS: BP 137/82
--- NOTE | 2021-12-19 14:08 | NUR ---
PAGER ID: [phone] MESSAGE: [id number] Eros Are you wanting Dr. Amaro or Tracy STRANGE to follow up with the cardiology consult prior to the patient leaving? [phone] Lenka
--- NOTE | 2021-12-19 15:28 | NUR ---
DM Consult: Pt hx T2DM A1C 10.3% this admit down from 12.1% 08/10/[address] attempted to contact pt via TC however not successful. Written DM ed w/ RD contact information mailed to pt home address in EMR. Addendum: 12/19/21 at [address] Amended: Links added.
--- NOTE | 2021-12-19 18:19 | NUR ---
Problems reprioritized. Patient report given, questions answered & plan of care reviewed with Angela BARROW.
[2021-12-19 18:30] VITALS: BP 139/86
--- NOTE | 2021-12-19 18:30 | NUR ---
Received report from Lenka Mann.
[2021-12-19] MEDS ORDERED: VANCOMYCIN 1GM/200ML IVPB 200 ML IV SCH (20:00)
[2021-12-19 22:00] VITALS: BP 123/62
[2021-12-20 02:13] VITALS: BP 143/81
[2021-12-20] MEDS: heparin, porcine 5000 units/ml vial SQ SCH ×2 (04:03→12:05)
[2021-12-20 06:00] VITALS: BP 139/78
--- NOTE | 2021-12-20 06:30 | NUR ---
Report given to Sona Mann.
[2021-12-20 07:20] LABS: BASOPHILS # (AUTO) 0.1 X10'3 (0-0.2); BASOPHILS % (AUTO) 0.8 % (0-1); EOSINOPHILS # (AUTO) 0.1 X10'3 (0-0.9); EOSINOPHILS % (AUTO) 0.4 % (0-6); HEMATOCRIT 43.6 % (42.0-52.0); LYMPHOCYTES # (AUTO) 1.9 X10'3 (1.1-4.8); LYMPHOCYTES % (AUTO) 14.6 % (21-51); MEAN CORPUSCULAR HEMOGLOBIN 29.7 PG (27.0-31.0); MEAN CORPUSCULAR HGB CONC 32.1 g/dL (33.0-36.5); MEAN CORPUSCULAR VOLUME 92.5 FL (78-98); MEAN PLATELET VOLUME 9.2 FL (7.4-10.4); MONOCYTES # (AUTO) 0.8 X10'3 (0-0.9); NEUTROPHILS # (AUTO) 10.2 X10'3 (1.8-7.7); NEUTROPHILS % (AUTO) 78.2 % (42-75); PLATELET COUNT 187 X10'3 (140-440); RED BLOOD COUNT 4.71 X10'6 (4.70-6.10); RED CELL DISTRIBUTION WIDTH 16.5 % (11.5-14.5)
[2021-12-20 07:26] LABS: D-DIMER 3.74 MG/L FEU (0-0.50)
[2021-12-20] MEDS: furosemide 40mg tablet PO SCH (07:29)
[2021-12-20] MEDS: dexamethasone inj 6 MG in dextrose 5%-water 50ml 50 ML IV SCH (07:29)
[2021-12-20] MEDS: docusate sod 100mg capsule PO SCH (07:29)
[2021-12-20] MEDS: carVEDilol 3.125mg tablet PO SCH (07:29)
[2021-12-20] MEDS: divalproex sodium 500mg tablet.DR PO SCH ×2 (07:30→12:05)
[2021-12-20] MEDS: spironolactone 25 MG tablet PO SCH (07:31)
[2021-12-20 07:46] LABS: ALANINE AMINOTRANSFERASE 312 U/L (12-78); ALBUMIN 2.1 G/DL (3.4-5.0); ALBUMIN/GLOBULIN RATIO 0.7 (1.1-1.5); ALKALINE PHOSPHATASE 153 IU/L (46-116); ANION GAP 10 (8-16); ASPARTATE AMINO TRANSFERASE 184 U/L (10-37); BILIRUBIN,TOTAL 0.6 MG/DL (0.1-1.0); BLOOD UREA NITROGEN 51 MG/DL (7-18); BUN/CREATININE RATIO 42.9 (5.4-32.0); CALCIUM 8.2 MG/DL (8.5-10.1); CHLORIDE 104 MMOL/L (99-107); CREATININE 1.19 MG/DL (0.60-1.10); GLUCOSE 121 MG/DL (70-104); MAGNESIUM 1.6 MG/DL (1.5-2.4); PHOSPHORUS 2.5 MG/DL (2.3-4.5); POTASSIUM 4.9 MMOL/L (3.5-5.1); SODIUM 137 MMOL/L (135-145); TOTAL CARBON DIOXIDE 23.3 MMOL/L (24-32); TOTAL PROTEIN 5.1 G/DL (6.4-8.2); eGFR 62 ML/MIN
[2021-12-20] MEDS: K and/or MAG REPLACEMENT MC SCH (08:00)
[2021-12-20] MEDS: insulin Lispro (HumaLOG) vial - multi-dose SQ SCH ×2 (09:04→12:55)
[2021-12-20 10:00] VITALS: BP 145/89
[2021-12-20] MEDS ORDERED: INSU100I31 SQ (12:42)
[2021-12-20] MEDS ORDERED: DEC4T PO (12:44)
[2021-12-20] MEDS ORDERED: ASPI-1265 PO (12:54)
--- NOTE | 2021-12-20 14:25 | NUR ---
Pt. received discharge instructions with no further questions; Pt IV removed with catheter intact; Pt tele box cleaned and returned; Per Dr. Brody. Pt. stable for discharge [facility] neuro
--- NOTE | 2021-12-20 15:26 | NUR ---
Took patient down to meet the [facility] Cab whom stated they would be here in 45 min. At 1445 called [facility] to find out what time they would be here the piercing machine operator stated another 20 minutes. The patient needed to go to the bathroom, took him there then asked Perry PCT to watch patient who was waiting for a cab, he agreed. [facility] Cab just called for warehouse order picker, called lana and Perry stated he left with out the cab showing up.
[2021-12-20] MEDS ORDERED: VANCOMYCIN LEVEL IV ONE (19:30)
== END 2021-12-20 14:30 | disposition home or self-care (01) | DRG 137 ==
LOC: ER 03:14 → ED HOLD 12:03 → CICU 2S 12:35 → ORTHO 4S 12-18 17:09
PROVIDERS: ADMIT Internal Medicine Critical Care Medicine; ATTEND Internal Medicine Critical Care Medicine
PROC: XW033H5 Introduction of Tocilizumab into Peripheral Vein, Percutaneous Approach, New Technology Group 5 (ICD-10-PCS; principal; 2021-12-16)
PROC: 5A0935A Assistance with Respiratory Ventilation, Less than 24 Consecutive Hours, High Flow/Velocity Cannula (ICD-10-PCS; 2021-12-16)
DX: U07.1 COVID-19 (principal); K72.00 Acute and subacute hepatic failure without coma; J12.82 Pneumonia due to coronavirus disease 2019; E11.649 Type 2 diabetes mellitus with hypoglycemia without coma; I50.22 Chronic systolic (congestive) heart failure; J80 Acute respiratory distress syndrome; E83.42 Hypomagnesemia; I11.0 Hypertensive heart disease with heart failure; E87.2 Acidosis; I42.9 Cardiomyopathy, unspecified; E78.00 Pure hypercholesterolemia, unspecified; E78.5 Hyperlipidemia, unspecified; G40.909 Epilepsy, unspecified, not intractable, without status epilepticus; I25.10 Atherosclerotic heart disease of native coronary artery without angina pectoris; N17.9 Acute kidney failure, unspecified; Z86.718 Personal history of other venous thrombosis and embolism; Z79.899 Other long term (current) drug therapy; Z79.4 Long term (current) use of insulin
CPT/HCPCS: 36415; 36600; 71045; 76700; 76770; 80053; 80074; 80164; 80305; 80320; 81001; 82803; 82948; 83036; 83605; 83735; 83880; 84100; 84132; 84145; 84484; 85018; 85025; 85379; 85610; 85730; 86140; 86703; 87040; 87077; 87081; 87088; 87186; 87635; 93005; 93306; 94640; 94660; 94760; 96365; 96366; 96368; 96375; 99291; A7015; C9803; G0378; J0692; J1100; J1644; J1815; J1940; J2060; J2930; J3262; J3370; J3475; J3490; J7060; Q9967

== ENCOUNTER 2022-01-07 16:36 | Inpatient (IN) | payer MEDICAID ==
[~2022-01-07] VITALS: Ht 165.1 cm; Wt 55.0 kg
[~2022-01-07 16:36] MED LIST changes: +ASPI-1265 PO; +CARV3.122 PO; -COR3.125T PO; +FURO40TA4 PO; -HYDR-3972 PO; -LIRA0.6P2 SUBCUT; -LISI2.5T14 PO; -METF1000 PO; -SPIR25TA PO; +SPIR25TA5 PO
[2022-01-07] MEDS ORDERED: dextrose 50%-water 50ml dispensing syringe IV ONE ×3 (17:15→22:14)
[2022-01-07 17:40] LABS: BASOPHILS # (AUTO) 0.1 X10'3 (0-0.2); BASOPHILS % (AUTO) 1.2 % (0-1); EOSINOPHILS % (AUTO) 0.2 % (0-6); HEMATOCRIT 41.6 % (42.0-52.0); HEMOGLOBIN 13.4 g/dl (14.0-17.9); LYMPHOCYTES # (AUTO) 0.9 X10'3 (1.1-4.8); LYMPHOCYTES % (AUTO) 11.2 % (21-51); MEAN CORPUSCULAR HEMOGLOBIN 30.5 PG (27.0-31.0); MEAN CORPUSCULAR HGB CONC 32.3 g/dL (33.0-36.5); MEAN CORPUSCULAR VOLUME 94.5 FL (78-98); MEAN PLATELET VOLUME 9.5 FL (7.4-10.4); MONOCYTES # (AUTO) 0.2 X10'3 (0-0.9); MONOCYTES % (AUTO) 2.5 % (2-12); NEUTROPHILS # (AUTO) 7.1 X10'3 (1.8-7.7); NEUTROPHILS % (AUTO) 84.9 % (42-75); PLATELET COUNT 125 X10'3 (140-440); RED CELL DISTRIBUTION WIDTH 18.4 % (11.5-14.5); WHITE BLOOD COUNT 8.4 X10'3 (4.5-11.0)
[2022-01-07 17:53] LABS: ALANINE AMINOTRANSFERASE 90 U/L (12-78); ALBUMIN 2.8 G/DL (3.4-5.0); ALKALINE PHOSPHATASE 123 IU/L (46-116); ANION GAP 15 (8-16); ASPARTATE AMINO TRANSFERASE 78 U/L (10-37); BILIRUBIN,TOTAL 1.1 MG/DL (0.1-1.0); BLOOD UREA NITROGEN 57 MG/DL (7-18); BUN/CREATININE RATIO 22.6 (5.4-32.0); CALCIUM 8.2 MG/DL (8.5-10.1); CHLORIDE 104 MMOL/L (99-107); CREATINE KINASE 421 U/L (39-308); CREATININE 2.52 MG/DL (0.60-1.10); GLUCOSE 184 MG/DL (70-104); MAGNESIUM 1.9 MG/DL (1.5-2.4); POTASSIUM 5.2 MMOL/L (3.5-5.1); SODIUM 139 MMOL/L (135-145); TOTAL CARBON DIOXIDE 19.9 MMOL/L (24-32); TOTAL PROTEIN 5.6 G/DL (6.4-8.2); eGFR 26 ML/MIN
[2022-01-07 17:54] LABS: ETHANOL < 0.010 GM/DL (0.0-0.010)
[2022-01-07] MEDS ORDERED: normal saline 1000ML IV soln IV ONE (18:05)
--- NOTE | 2022-01-07 18:20 | NUR ---
report given to yony quiroz
--- NOTE | 2022-01-07 19:22 | NUR ---
meal tray given to pt
[2022-01-07 19:24] LABS: URINE AMPHETAMINE SCREEN POSITIVE (Neg); URINE BARBITUATE SCREEN NEGATIVE (Neg); URINE BENZODIAZEPINES SCREEN NEGATIVE (Neg); URINE CANNABINOID SCREEN NEGATIVE (Neg); URINE COCAINE SCREEN NEGATIVE (Neg); URINE METHADONE SCREEN NEGATIVE (Neg); URINE OPIATE SCREEN NEGATIVE (Neg); URINE PHENCYCLIDINE SCREEN NEGATIVE (Neg)
[2022-01-07 19:25] LABS: CLARITY,URINE SLIGHTLY CLOUDY (Clear); COLOR,URINE YELLOW (Yellow); GLUCOSE, URINE NEGATIVE (Neg); KETONES,URINE NEGATIVE (Neg); LEUKOCYTE ESTERASE ,URINE SMALL (Neg); NITRITES, URINE POSITIVE (Neg); OCCULT BLOOD,URINE MODERATE (Neg); PROTEIN,URINE 100 mg/dl (Neg); UROBILINOGEN,URINE 0.2 E.U/dL (0.2-1.0)
[2022-01-07 19:33] LABS: UA COLLECTION TYPE VOIDED
[2022-01-07 19:38] LABS: WBC CLUMPS,URINE MANY /HPF (NEGATIVE)
[2022-01-07 19:39] LABS: BACTERIA,URINE 3+ /HPF (Neg); WBC,URINE 50-100 /HPF (0-4)
[2022-01-07 19:40] LABS: HYALINE CASTS 0-3 /LPF (NEGATIVE); MUCUS STRANDS NONE SEEN /LPF (Neg); SQUAMOUS EPITHELIAL CELL,UR FEW /LPF (FEW)
[2022-01-07] MEDS ORDERED: FOSFOMYCIN TROMETHAMINE 3 GM PACKET PO ONE (20:15)
[2022-01-07] MEDS ORDERED: dexamethasone sod phosphate 10mg/ml inj IV STA ×2 (20:30→23:14)
[2022-01-07] MEDS ORDERED: cephalexin 250mg capsule PO ONE (20:45)
[2022-01-07] MEDS ORDERED: CefTRIAXone 1000mg IM Kit (w/lidocaine diluent) IM ONE (20:50)
[2022-01-07] MEDS ORDERED: magnesium hydroxide 30ml (MOM) UD suspension PO PRN (22:50)
[2022-01-07] MEDS ORDERED: potassium Cl 20 mEq SR tablet PO PRN ×2 (22:50)
[2022-01-07] MEDS ORDERED: magnesium 2GM in 50ml NS 50 ML IV PRN (22:50)
[2022-01-07] MEDS ORDERED: magnesium 4gm in 100ml NS 100 ML IV PRN (22:50)
[2022-01-07] MEDS ORDERED: mag hydrox/Alum hydrox/simeth 30ml oral suspension PO PRN (22:50)
[2022-01-07] MEDS ORDERED: acetaminophen 325mg tablet PO PRN (22:50)
[2022-01-07] MEDS ORDERED: potassium CL 10mEq/100ml bag 100 ML IV PRN (22:50)
[2022-01-07] MEDS ORDERED: magnesium Cl slow-release 64mg tablet PO PRN (22:50)
[2022-01-07] MEDS ORDERED: ondansetron/PF 4mg/2ml inj IV PRN (22:50)
[2022-01-07] MEDS: dextrose 50%-water 50ml dispensing syringe IV SCH (23:46)
[2022-01-08 01:05] VITALS: BP 146/96
[2022-01-08] MEDS: dextrose 50%-water 50ml dispensing syringe IV SCH ×6 (01:14→11:58)
--- NOTE | 2022-01-08 01:15 | NUR ---
Received pt in bed AAO X4 denied any discomfort. scheduled blood sugar result is low 59mg/dl ; med given.
--- NOTE | 2022-01-08 01:29 | NUR ---
Dr Del Rosario notified of blood sugar result and i suggested IV dextrose maintenance fluid; no fluid needed pt EF is 10-15% per MD. Continue to monitor pt.
[2022-01-08 02:00] VITALS: BP 139/90
--- NOTE | 2022-01-08 04:00 | NUR ---
First blood sugar above 250 mg/dl reported to Dr Del Rosario. Next one at 0500
--- NOTE | 2022-01-08 06:00 | NUR ---
Blood sugar level reported to Dr Del Rosario; new order given. Pharmacy called the floor after i placed the order instructed him to speak with Dr Del Rosario for order clarification. In coming nurse made aware.
--- NOTE | 2022-01-08 06:35 | NUR ---
Pt remained in stable condition stable, asleep at this time. Blood sugar monitoring in progress as instructed by
[2022-01-08 06:55] LABS: BASOPHILS % (AUTO) 0.1 % (0-1); EOSINOPHILS % (AUTO) 0 % (0-6); HEMATOCRIT 42.1 % (42.0-52.0); HEMOGLOBIN 13.7 g/dl (14.0-17.9); LYMPHOCYTES # (AUTO) 0.2 X10'3 (1.1-4.8); LYMPHOCYTES % (AUTO) 1.1 % (21-51); MEAN CORPUSCULAR HEMOGLOBIN 29.9 PG (27.0-31.0); MEAN CORPUSCULAR HGB CONC 32.5 g/dL (33.0-36.5); MEAN CORPUSCULAR VOLUME 92.1 FL (78-98); MEAN PLATELET VOLUME 9.5 FL (7.4-10.4); MONOCYTES # (AUTO) 0.3 X10'3 (0-0.9); MONOCYTES % (AUTO) 2.5 % (2-12); NEUTROPHILS # (AUTO) 12.8 X10'3 (1.8-7.7); NEUTROPHILS % (AUTO) 96.3 % (42-75); PLATELET COUNT 85 X10'3 (140-440); RED BLOOD COUNT 4.57 X10'6 (4.70-6.10); RED CELL DISTRIBUTION WIDTH 18.4 % (11.5-14.5); WHITE BLOOD COUNT 13.3 X10'3 (4.5-11.0)
[2022-01-08 07:11] LABS: ALANINE AMINOTRANSFERASE 91 U/L (12-78); ALBUMIN 2.5 G/DL (3.4-5.0); ALBUMIN/GLOBULIN RATIO 0.9 (1.1-1.5); ALKALINE PHOSPHATASE 112 IU/L (46-116); ANION GAP 18 (8-16); ASPARTATE AMINO TRANSFERASE 92 U/L (10-37); BILIRUBIN,TOTAL 1.6 MG/DL (0.1-1.0); BLOOD UREA NITROGEN 51 MG/DL (7-18); BUN/CREATININE RATIO 26.2 (5.4-32.0); CHLORIDE 104 MMOL/L (99-107); CREATININE 1.95 MG/DL (0.60-1.10); GLUCOSE 280 MG/DL (70-104); MAGNESIUM 1.6 MG/DL (1.5-2.4); POTASSIUM 4.9 MMOL/L (3.5-5.1); SODIUM 138 MMOL/L (135-145); TOTAL CARBON DIOXIDE 16.2 MMOL/L (24-32); TOTAL PROTEIN 5.2 G/DL (6.4-8.2); eGFR 35 ML/MIN
[2022-01-08 07:28] VITALS: BP 149/94
[2022-01-08] MEDS: divalproex sodium 500mg tablet.DR PO SCH ×3 (07:55→20:07)
[2022-01-08] MEDS: docusate sod 100mg capsule PO SCH ×2 (07:55→20:02)
[2022-01-08] MEDS: aspirin 81mg tab.chew PO SCH (07:56)
[2022-01-08] MEDS: carVEDilol 3.125mg tablet PO SCH ×2 (07:56→20:02)
[2022-01-08] MEDS: heparin, porcine 5000 units/ml vial SQ SCH ×2 (07:56→20:02)
[2022-01-08] MEDS: K and/or MAG REPLACEMENT MC SCH ×2 (08:00→20:00)
--- NOTE | 2022-01-08 08:09 | NUR ---
page sent PAGER ID: [phone] MESSAGE: [id number]. Patient admitted for UTI, low BG, was on q1 and q2 hour BG. hs had d50 multiple time, BG greater 250 x3, d50 ordered. shld we go back to protocol? please adv
[2022-01-08] MEDS ORDERED: METF-1203 PO (10:04)
[2022-01-08] MEDS ORDERED: LISI5TAB22 PO (10:04)
[2022-01-08 11:51] VITALS: BP 121/78
--- NOTE | 2022-01-08 12:00 | NUR ---
DM Consult: Pt w/ hx DM, A1c 9.8 per EMR. electrical engineering intern provided pt at bedside w/ written and verbal DM education and RD contact information attached. Addendum: 01/08/22 at 1200 by Zayra Rodrigeuz - Combustion Engineer RD Amended: Links added. Addendum: 01/08/22 at [address] I have reviewed assessment by senior internet sales consultant
--- NOTE | 2022-01-08 12:53 | NUR ---
Met with patient in regards to substance use and to see if patient was interested in treatment options. Patient declined any resources at this time.
[2022-01-08] MEDS: normal saline 1000ml 1,000 ML IV SCH ×2 (14:00→23:24)
[2022-01-08] MEDS ORDERED: DEXTROSE 15 GM of carb/4 tabs (each vial/BOTTLE has 4 tablets) PO PRN ×2 (14:35)
[2022-01-08] MEDS ORDERED: MESSAGE TO PHARMACY PO ONE (14:35)
[2022-01-08] MEDS ORDERED: glucagon, human recombinant 1mg kit SUBCUT PRN (14:35)
[2022-01-08] MEDS ORDERED: dextrose 50%-water 50ml dispensing syringe IV PRN ×2 (14:35)
[2022-01-08] MEDS: cefTRIAXone 1g/NS 100ml IVPB 100 ML IV SCH (14:58)
[2022-01-08] MEDS: insulin Lispro (HumaLOG) vial - multi-dose SQ SCH ×2 (15:03→20:07)
[2022-01-08 18:00] VITALS: BP 136/87
[2022-01-08] MEDS ORDERED: insulin glargine (Lantus) pen - multi-dose SQ SCH (21:00)
[2022-01-08 22:00] VITALS: BP 113/76
[2022-01-09 02:00] VITALS: BP 118/75
[2022-01-09 06:22] LABS: BASOPHILS % (AUTO) 0.2 % (0-1); EOSINOPHILS % (AUTO) 0.2 % (0-6); HEMATOCRIT 39.3 % (42.0-52.0); HEMOGLOBIN 12.6 g/dl (14.0-17.9); LYMPHOCYTES # (AUTO) 0.9 X10'3 (1.1-4.8); MEAN CORPUSCULAR HEMOGLOBIN 29.5 PG (27.0-31.0); MEAN PLATELET VOLUME 9.7 FL (7.4-10.4); MONOCYTES # (AUTO) 0.8 X10'3 (0-0.9); MONOCYTES % (AUTO) 5.4 % (2-12); NEUTROPHILS % (AUTO) 88.2 % (42-75); PLATELET COUNT 103 X10'3 (140-440); RED BLOOD COUNT 4.28 X10'6 (4.70-6.10); RED CELL DISTRIBUTION WIDTH 18.8 % (11.5-14.5); WHITE BLOOD COUNT 14.8 X10'3 (4.5-11.0)
[2022-01-09 06:39] LABS: ALANINE AMINOTRANSFERASE 73 U/L (12-78); ALBUMIN 2.2 G/DL (3.4-5.0); ALBUMIN/GLOBULIN RATIO 0.8 (1.1-1.5); ALKALINE PHOSPHATASE 94 IU/L (46-116); ANION GAP 13 (8-16); ASPARTATE AMINO TRANSFERASE 65 U/L (10-37); BILIRUBIN,TOTAL 0.7 MG/DL (0.1-1.0); BLOOD UREA NITROGEN 40 MG/DL (7-18); CALCIUM 7.9 MG/DL (8.5-10.1); CHLORIDE 109 MMOL/L (99-107); CREATININE 1.48 MG/DL (0.60-1.10); GLUCOSE 73 MG/DL (70-104); MAGNESIUM 1.7 MG/DL (1.5-2.4); POTASSIUM 4.4 MMOL/L (3.5-5.1); SODIUM 141 MMOL/L (135-145); TOTAL CARBON DIOXIDE 18.6 MMOL/L (24-32); TOTAL PROTEIN 4.8 G/DL (6.4-8.2); eGFR 48 ML/MIN
[2022-01-09] MEDS: K and/or MAG REPLACEMENT MC SCH (08:00)
[2022-01-09] MEDS: carVEDilol 3.125mg tablet PO SCH (08:23)
[2022-01-09] MEDS: cefTRIAXone 1g/NS 100ml IVPB 100 ML IV SCH (08:23)
[2022-01-09] MEDS: divalproex sodium 500mg tablet.DR PO SCH ×2 (08:23→13:40)
[2022-01-09] MEDS: aspirin 81mg tab.chew PO SCH (08:23)
[2022-01-09] MEDS: heparin, porcine 5000 units/ml vial SQ SCH (08:23)
[2022-01-09] MEDS: docusate sod 100mg capsule PO SCH (08:23)
[2022-01-09] MEDS: normal saline 1000ml 1,000 ML IV SCH (09:45)
[2022-01-09] MEDS ORDERED: INSU100I31 SQ (13:10)
[2022-01-09] MEDS ORDERED: CIPR-202 PO (13:10)
== END 2022-01-09 15:35 | disposition home or self-care (01) | DRG 420 ==
LOC: ER 16:36 → ED HOLD 22:55 → EDBEDREQ 01-08 00:16 → PCU 3S 01-08 01:12
PROVIDERS: ADMIT Internal Medicine; ATTEND Family Medicine
DX: E11.649 Type 2 diabetes mellitus with hypoglycemia without coma (principal); N17.0 Acute kidney failure with tubular necrosis; G93.41 Metabolic encephalopathy; N39.0 Urinary tract infection, site not specified; B96.20 Unspecified Escherichia coli [E. coli] as the cause of diseases classified elsewhere; I42.9 Cardiomyopathy, unspecified; I11.0 Hypertensive heart disease with heart failure; E78.00 Pure hypercholesterolemia, unspecified; I50.9 Heart failure, unspecified; F15.90 Other stimulant use, unspecified, uncomplicated; Z79.899 Other long term (current) drug therapy; Z79.82 Long term (current) use of aspirin
CPT/HCPCS: 36415; 71045; 80053; 80305; 80320; 81001; 82550; 82948; 83036; 83605; 83735; 84145; 85025; 87040; 87077; 87081; 87088; 87186; 93005; 96361; 96372; 96374; 96375; 99285; G0378; J0696; J1100; J1644; J1815; J3490; J7030

== ENCOUNTER 2022-02-08 01:57 | Emergency (ER) | payer MEDICAID ==
[~2022-02-08] VITALS: Ht 167.6 cm; Wt 77.3 kg
[~2022-02-08 01:57] MED LIST changes: -ASPI-1265 PO; +CIPR-202 PO; -FURO40TA4 PO; +LISI5TAB22 PO; -SPIR25TA5 PO
[2022-02-08 04:48] LABS: BASOPHILS # (AUTO) 0.1 X10'3 (0-0.2); BASOPHILS % (AUTO) 0.9 % (0-1); EOSINOPHILS # (AUTO) 0.1 X10'3 (0-0.9); EOSINOPHILS % (AUTO) 1.6 % (0-6); HEMATOCRIT 39.2 % (42.0-52.0); HEMOGLOBIN 13.1 g/dl (14.0-17.9); LYMPHOCYTES % (AUTO) 14.6 % (21-51); MEAN CORPUSCULAR HEMOGLOBIN 31.4 PG (27.0-31.0); MEAN CORPUSCULAR HGB CONC 33.4 g/dL (33.0-36.5); MEAN CORPUSCULAR VOLUME 94.2 FL (78-98); MEAN PLATELET VOLUME 8.8 FL (7.4-10.4); MONOCYTES # (AUTO) 1.1 X10'3 (0-0.9); MONOCYTES % (AUTO) 15.4 % (2-12); NEUTROPHILS # (AUTO) 4.7 X10'3 (1.8-7.7); NEUTROPHILS % (AUTO) 67.5 % (42-75); PLATELET COUNT 201 X10'3 (140-440); RED BLOOD COUNT 4.17 X10'6 (4.70-6.10); RED CELL DISTRIBUTION WIDTH 18.2 % (11.5-14.5); WHITE BLOOD COUNT 6.9 X10'3 (4.5-11.0)
[2022-02-08 05:03] LABS: ALANINE AMINOTRANSFERASE 22 U/L (12-78); ALBUMIN 2.4 G/DL (3.4-5.0); ALBUMIN/GLOBULIN RATIO 0.7 (1.1-1.5); ALKALINE PHOSPHATASE 162 IU/L (46-116); ANION GAP 10 (8-16); ASPARTATE AMINO TRANSFERASE 25 U/L (10-37); BILIRUBIN,TOTAL 0.6 MG/DL (0.1-1.0); BLOOD UREA NITROGEN 30 MG/DL (7-18); BUN/CREATININE RATIO 24.8 (5.4-32.0); CALCIUM 8.1 MG/DL (8.5-10.1); CHLORIDE 106 MMOL/L (99-107); CREATININE 1.21 MG/DL (0.60-1.10); GLUCOSE 194 MG/DL (70-104); POTASSIUM 4.5 MMOL/L (3.5-5.1); SODIUM 139 MMOL/L (135-145); TOTAL CARBON DIOXIDE 23.4 MMOL/L (24-32); TOTAL PROTEIN 5.7 G/DL (6.4-8.2); eGFR 61 ML/MIN
[2022-02-08] MEDS ORDERED: furosemide 10 MG/1 ML 10ml inj IV STA (06:28)
[2022-02-08] MEDS ORDERED: furosemide 20 MG/2 ML vial IV STA (06:29)
[2022-02-08] MEDS ORDERED: FURO-150 PO (06:39)
[2022-02-08 08:09] VITALS: BP 167/105
== END 2022-02-08 08:26 | disposition home or self-care (01) ==
LOC: ER 01:57
DX: R22.43 Localized swelling, mass and lump, lower limb, bilateral (principal); I50.22 Chronic systolic (congestive) heart failure; F15.90 Other stimulant use, unspecified, uncomplicated; I11.0 Hypertensive heart disease with heart failure; I50.9 Heart failure, unspecified; E78.00 Pure hypercholesterolemia, unspecified; Z85.9 Personal history of malignant neoplasm, unspecified; Z79.2 Long term (current) use of antibiotics; Z79.899 Other long term (current) drug therapy
CPT/HCPCS: 36415; 71045; 80053; 83880; 84484; 85025; 93005; 96374; 99285; J1940

== ENCOUNTER 2022-03-14 17:53 | Emergency (ER) | payer MEDICAID ==
[~2022-03-14] VITALS: Ht 167.6 cm; Wt 78.0 kg
[~2022-03-14 17:53] MED LIST changes: -CIPR-202 PO
[2022-03-14 19:22] LABS: BASOPHILS # (AUTO) 0.1 X10'3 (0-0.2); BASOPHILS % (AUTO) 0.7 % (0-1); EOSINOPHILS # (AUTO) 0.1 X10'3 (0-0.9); HEMATOCRIT 43.6 % (42.0-52.0); HEMOGLOBIN 14.3 g/dl (14.0-17.9); LYMPHOCYTES # (AUTO) 1.4 X10'3 (1.1-4.8); LYMPHOCYTES % (AUTO) 17.8 % (21-51); MEAN CORPUSCULAR HEMOGLOBIN 31.4 PG (27.0-31.0); MEAN CORPUSCULAR HGB CONC 32.8 g/dL (33.0-36.5); MEAN CORPUSCULAR VOLUME 95.7 FL (78-98); MEAN PLATELET VOLUME 8.9 FL (7.4-10.4); MONOCYTES # (AUTO) 0.9 X10'3 (0-0.9); MONOCYTES % (AUTO) 12.3 % (2-12); NEUTROPHILS # (AUTO) 5.3 X10'3 (1.8-7.7); NEUTROPHILS % (AUTO) 68.2 % (42-75); PLATELET COUNT 214 X10'3 (140-440); RED BLOOD COUNT 4.55 X10'6 (4.70-6.10); RED CELL DISTRIBUTION WIDTH 16.3 % (11.5-14.5); WHITE BLOOD COUNT 7.7 X10'3 (4.5-11.0)
[2022-03-14 19:39] LABS: ALANINE AMINOTRANSFERASE 15 U/L (12-78); ALBUMIN 2.3 G/DL (3.4-5.0); ALBUMIN/GLOBULIN RATIO 0.5 (1.1-1.5); ALKALINE PHOSPHATASE 171 IU/L (46-116); ANION GAP 7 (8-16); BILIRUBIN,TOTAL 0.9 MG/DL (0.1-1.0); BLOOD UREA NITROGEN 23 MG/DL (7-18); CALCIUM 8.4 MG/DL (8.5-10.1); CHLORIDE 104 MMOL/L (99-107); GLUCOSE 305 MG/DL (70-104); SODIUM 134 MMOL/L (135-145); TOTAL CARBON DIOXIDE 22.9 MMOL/L (24-32); TOTAL PROTEIN 6.6 G/DL (6.4-8.2)
[2022-03-14 19:40] LABS: ASPARTATE AMINO TRANSFERASE 36 U/L (10-37); POTASSIUM 5.5 MMOL/L (3.5-5.1)
[2022-03-14 19:54] LABS: BUN/CREATININE RATIO 19.7 (5.4-32.0); CREATININE 1.17 MG/DL (0.60-1.10); eGFR 63 ML/MIN
[2022-03-14] MEDS ORDERED: furosemide 20MG tablet PO ONE (22:20)
[2022-03-14 22:41] VITALS: BP 140/69
== END 2022-03-14 22:42 | disposition home or self-care (01) ==
LOC: ER 17:53
DX: I11.0 Hypertensive heart disease with heart failure (principal); I50.9 Heart failure, unspecified; R06.02 Shortness of breath; E78.00 Pure hypercholesterolemia, unspecified; E11.9 Type 2 diabetes mellitus without complications; F17.200 Nicotine dependence, unspecified, uncomplicated; F15.90 Other stimulant use, unspecified, uncomplicated; Z86.69 Personal history of other diseases of the nervous system and sense organs; Z98.890 Other specified postprocedural states; Z79.4 Long term (current) use of insulin; Z79.899 Other long term (current) drug therapy
CPT/HCPCS: 36415; 71045; 80053; 83880; 84484; 85025; 93005; 99285

== ENCOUNTER 2022-06-27 15:12 | Inpatient (IN) | payer MEDICAID ==
[~2022-06-27] VITALS: Ht 167.6 cm; Wt 77.3 kg
[2022-06-27 15:53] LABS: BASOPHILS # (AUTO) 0.1 X10'3 (0-0.2); BASOPHILS % (AUTO) 0.9 % (0-1); EOSINOPHILS % (AUTO) 0.2 % (0-6); HEMATOCRIT 37.4 % (42.0-52.0); HEMOGLOBIN 12.4 g/dl (14.0-17.9); LYMPHOCYTES # (AUTO) 0.9 X10'3 (1.1-4.8); LYMPHOCYTES % (AUTO) 11.4 % (21-51); MEAN CORPUSCULAR HEMOGLOBIN 30.4 PG (27.0-31.0); MEAN CORPUSCULAR VOLUME 92.1 FL (78-98); MEAN PLATELET VOLUME 8.2 FL (7.4-10.4); MONOCYTES # (AUTO) 0.7 X10'3 (0-0.9); MONOCYTES % (AUTO) 8.3 % (2-12); NEUTROPHILS # (AUTO) 6.5 X10'3 (1.8-7.7); NEUTROPHILS % (AUTO) 79.2 % (42-75); PLATELET COUNT 300 X10'3 (140-440); RED BLOOD COUNT 4.06 X10'6 (4.70-6.10); RED CELL DISTRIBUTION WIDTH 15.5 % (11.5-14.5); WHITE BLOOD COUNT 8.3 X10'3 (4.5-11.0)
[2022-06-27 16:01] LABS: ALANINE AMINOTRANSFERASE 11 U/L (12-78); ALBUMIN 2.5 G/DL (3.4-5.0); ALBUMIN/GLOBULIN RATIO 0.6 (1.1-1.5); ALKALINE PHOSPHATASE 156 IU/L (46-116); ANION GAP 10 (8-16); ASPARTATE AMINO TRANSFERASE 19 U/L (10-37); BILIRUBIN,TOTAL 0.7 MG/DL (0.1-1.0); BLOOD UREA NITROGEN 23 MG/DL (7-18); BUN/CREATININE RATIO 22.1 (5.4-32.0); CALCIUM 8.6 MG/DL (8.5-10.1); CHLORIDE 104 MMOL/L (99-107); CREATININE 1.04 MG/DL (0.60-1.10); GLUCOSE 144 MG/DL (70-104); POTASSIUM 4.9 MMOL/L (3.5-5.1); SODIUM 139 MMOL/L (135-145); TOTAL CARBON DIOXIDE 25.1 MMOL/L (24-32); TOTAL PROTEIN 6.8 G/DL (6.4-8.2); eGFR 73 ML/MIN
[2022-06-27] MEDS ORDERED: CefTRIAXone/D5W-Rocephin 1gm 50 ML IV ONE (16:55)
[2022-06-27] MEDS ORDERED: furosemide 10 MG/1 ML 10ml inj IV ONE (16:55)
[2022-06-27] MEDS ORDERED: vancomycin/NS 1 GM ADD-VANTAGE 250 ML IV ONE (16:55)
[2022-06-27] MEDS ORDERED: iohexol 350MG/ML 100ml bottle IV ONE (17:30)
[2022-06-27 17:35] LABS: C-REACTIVE PROTEIN 2.13 MG/DL (0.0-0.5)
--- NOTE | 2022-06-27 17:35 | NUR ---
Pt left ED for CT chest to R/O PE, no distress noted.
[2022-06-27 18:06] LABS: ETHANOL < 0.010 GM/DL (0.0-0.010)
[2022-06-27] MEDS ORDERED: HYDROcodone/acetaminophen 5mg/325mg tablet PO PRN (18:15)
[2022-06-27] MEDS ORDERED: mag hydrox/Alum hydrox/simeth 30ml oral suspension PO PRN (18:15)
[2022-06-27] MEDS ORDERED: HYDROcodone/acetaminophen 10/325mg tab PO PRN (18:15)
[2022-06-27] MEDS ORDERED: magnesium 4gm in 100ml NS 100 ML IV PRN (18:15)
[2022-06-27] MEDS ORDERED: PERFLUTREN PROTEIN-A MICROSPHR (Optison) 0.22 MG/ML 3ML VIAL IV ONE (18:15)
[2022-06-27] MEDS ORDERED: acetaminophen 650mg rectal suppository RC PRN (18:15)
[2022-06-27] MEDS ORDERED: bisacodyl 10mg suppository rectal RC PRN (18:15)
[2022-06-27] MEDS ORDERED: magnesium hydroxide 30ml (MOM) UD suspension PO PRN (18:15)
[2022-06-27] MEDS ORDERED: morphine 2 MG/ML inj. syringe IV PRN ×2 (18:15)
[2022-06-27] MEDS ORDERED: potassium CL 10mEq/100ml bag 100 ML IV PRN (18:15)
[2022-06-27] MEDS ORDERED: ondansetron/PF 4mg/2ml inj IV PRN (18:15)
[2022-06-27] MEDS ORDERED: POTASSIUM BICARB 20meq eff tab 20 MEQ TABLET.EFF PO PRN ×2 (18:15)
[2022-06-27] MEDS ORDERED: acetaminophen 325mg tablet PO PRN (18:15)
[2022-06-27] MEDS ORDERED: diphenhydrAMINE 25mg capsule PO PRN (18:15)
[2022-06-27] MEDS ORDERED: magnesium 2GM in 50ml NS 50 ML IV PRN (18:15)
[2022-06-27] MEDS: MESSAGE TO NURSING PO NR (18:31)
[2022-06-27 18:45] LABS: CLARITY,URINE CLEAR (Clear); COLOR,URINE YELLOW (Yellow); GLUCOSE, URINE NEGATIVE (Neg); KETONES,URINE NEGATIVE (Neg); LEUKOCYTE ESTERASE ,URINE NEGATIVE (Neg); NITRITES, URINE NEGATIVE (Neg); OCCULT BLOOD,URINE MODERATE (Neg); PROTEIN,URINE 100 mg/dl (Neg); UROBILINOGEN,URINE 0.2 E.U/dL (0.2-1.0)
[2022-06-27 18:50] LABS: URINE AMPHETAMINE SCREEN POSITIVE (Neg); URINE BARBITUATE SCREEN NEGATIVE (Neg); URINE BENZODIAZEPINES SCREEN NEGATIVE (Neg); URINE CANNABINOID SCREEN NEGATIVE (Neg); URINE COCAINE SCREEN NEGATIVE (Neg); URINE METHADONE SCREEN NEGATIVE (Neg); URINE OPIATE SCREEN NEGATIVE (Neg); URINE PHENCYCLIDINE SCREEN NEGATIVE (Neg)
[2022-06-27 18:53] LABS: UA COLLECTION TYPE CLN CATCH MIDSTREAM
[2022-06-27 18:55] LABS: WBC,URINE 0-4 /HPF (0-4)
[2022-06-27 18:56] LABS: BACTERIA,URINE FEW /HPF (Neg); MUCUS STRANDS FEW /LPF (Neg); SQUAMOUS EPITHELIAL CELL,UR FEW /LPF (FEW); TRANSITIONAL EPI CELLS,URINE FEW /HPF
[2022-06-27 19:00] LABS: HEMOGLOBIN A1C 8.1 % (4.5-6.2)
--- NOTE | 2022-06-27 19:15 | NUR ---
Patient unhappy with condom cath placed by day shift, took it off himself. Patient provided urinal.
[2022-06-27] MEDS: K and/or MAG REPLACEMENT MC SCH (20:00)
[2022-06-27] MEDS: docusate sod 100mg capsule PO SCH (20:00)
--- NOTE | 2022-06-27 20:35 | NUR ---
Nurse witnessed patient having a bowel movement on the floor of the room, despite ability to use commode and/or walk to bathroom. Patient educated on proper etiquette of bowel elimination.
--- NOTE | 2022-06-27 21:00 | NUR ---
Patient told panel machine setter "If you don't unhook me from this monitor I am going to keep shitting on the floor". Patient educated on need for monitor, and told he could stay on monitors and still sit on [facility]. Patient continued to refuse being attached to monitor.
[2022-06-27 22:20] VITALS: BP 149/98
--- NOTE | 2022-06-27 23:07 | NUR ---
Pt came up to floor at 2220 with c/o being unable to urinate. Pain 07/30, 149/98, 124 HR, 101.1 AX. Bladder scan showed >781, straight cathed pt with 750cc, repeat BS >750. MD notified and new orders imputed. Please see interventions. Addendum: 06/27/22 at 2314 by Edwina Truong RN PAGER ID: [phone] MESSAGE: ErosNegrito [id number], Having trouble urinating. Has a temp of 101.1, HR 124, 149/98. -Thanks Edwina Clarke EXT [id number]
[2022-06-27] MEDS ORDERED: LIDOcaine 2% 10ml TOPICAL JELLY (Urojet) TP ONE (23:15)
[2022-06-28] MEDS: furosemide 10 MG/1 ML 10ml inj IV SCH ×3 (00:38→20:00)
[2022-06-28 02:00] VITALS: BP 98/65
[2022-06-28 06:16] LABS: BASOPHILS # (AUTO) 0.1 X10'3 (0-0.2); EOSINOPHILS % (AUTO) 0.1 % (0-6); HEMATOCRIT 38.5 % (42.0-52.0); HEMOGLOBIN 12.6 g/dl (14.0-17.9); LYMPHOCYTES % (AUTO) 11.4 % (21-51); MEAN CORPUSCULAR HEMOGLOBIN 30.3 PG (27.0-31.0); MEAN CORPUSCULAR HGB CONC 32.6 g/dL (33.0-36.5); MEAN CORPUSCULAR VOLUME 92.8 FL (78-98); MEAN PLATELET VOLUME 8.2 FL (7.4-10.4); MONOCYTES # (AUTO) 1.1 X10'3 (0-0.9); MONOCYTES % (AUTO) 13.1 % (2-12); NEUTROPHILS # (AUTO) 6.3 X10'3 (1.8-7.7); NEUTROPHILS % (AUTO) 74.4 % (42-75); PLATELET COUNT 257 X10'3 (140-440); RED BLOOD COUNT 4.15 X10'6 (4.70-6.10); RED CELL DISTRIBUTION WIDTH 15.9 % (11.5-14.5); WHITE BLOOD COUNT 8.5 X10'3 (4.5-11.0)
[2022-06-28] MEDS: vancomycin/NS 1 GM ADD-VANTAGE 250 ML IV SCH ×2 (06:26→18:00)
[2022-06-28 06:29] LABS: ALANINE AMINOTRANSFERASE 8 U/L (12-78); ALBUMIN 2.2 G/DL (3.4-5.0); ALBUMIN/GLOBULIN RATIO 0.6 (1.1-1.5); ALKALINE PHOSPHATASE 129 IU/L (46-116); ANION GAP 9 (8-16); ASPARTATE AMINO TRANSFERASE 17 U/L (10-37); BILIRUBIN,TOTAL 0.6 MG/DL (0.1-1.0); BLOOD UREA NITROGEN 29 MG/DL (7-18); BUN/CREATININE RATIO 20.1 (5.4-32.0); CHLORIDE 102 MMOL/L (99-107); CHOL/HDL RATIO 5.1 (0.00-4.99); CHOLESTEROL 158 MG/DL (0-200); CREATININE 1.44 MG/DL (0.60-1.10); GLUCOSE 108 MG/DL (70-104); HDL CHOLESTEROL 31 MG/DL (35-60); LDL CHOLESTEROL 107 MG/DL (50-100); MAGNESIUM 1.4 MG/DL (1.5-2.4); PHOSPHORUS 5.2 MG/DL (2.3-4.5); POTASSIUM 5.4 MMOL/L (3.5-5.1); SODIUM 139 MMOL/L (135-145); TOTAL CARBON DIOXIDE 28.2 MMOL/L (24-32); TOTAL PROTEIN 6.1 G/DL (6.4-8.2); TRIGLYCERIDES 77 MG/DL (20-135); eGFR 50 ML/MIN
--- NOTE | 2022-06-28 06:52 | NUR ---
Problems reprioritized. Patient report given, questions answered & plan of care reviewed with Omega RN.
[2022-06-28] MEDS: K and/or MAG REPLACEMENT MC SCH ×2 (08:00→20:00)
[2022-06-28] MEDS: CefTRIAXone/D5W-Rocephin 1gm 50 ML IV SCH (08:25)
[2022-06-28] MEDS: docusate sod 100mg capsule PO SCH ×2 (08:28→20:00)
[2022-06-28] MEDS: enoxaparin 40mg/0.4ml syringe SUBCUT SCH (08:29)
[2022-06-28] MEDS ORDERED: dextrose 50%-water 50ml dispensing syringe IV PRN ×2 (08:50)
[2022-06-28] MEDS ORDERED: MESSAGE TO PHARMACY PO ONE (08:50)
[2022-06-28] MEDS ORDERED: glucagon, human recombinant 1mg kit SUBCUT PRN (08:50)
[2022-06-28] MEDS ORDERED: DEXTROSE 15 GM of carb/4 tabs (each vial/BOTTLE has 4 tablets) PO PRN ×2 (08:50)
[2022-06-28] MEDS: magnesium Cl slow-release 64mg tablet PO PRN (09:38)
[2022-06-28] MEDS: MESSAGE TO NURSING PO NR (10:00)
[2022-06-28 11:13] VITALS: BP 101/65
--- NOTE | 2022-06-28 11:23 | NUR ---
Per EMR pt with T2DM, current A1c is 8.1%. Attempted visit with pt at bedside however pt sleeping. Written DM education with RD contact information left at bedside. Of note DM management appears to be improving as pt with A1c h/o 12.1% 08/15/21, 10.3% 12/16/21, and 9.8% 01/08/22 per EMR. Noted pt on a heart healthy diet with no CHO restriction however CHO controlled diet not warranted at this time as BG levels range 85-144 mg/dL throughout LOS. Will continue to follow. Addendum: 06/28/22 at [address] Amended: Links added.
[2022-06-28] MEDS ORDERED: ATOR-2 PO (11:31)
[2022-06-28] MEDS ORDERED: FURO20TA4 PO (11:31)
[2022-06-28] MEDS ORDERED: METF-1203 PO (11:31)
[2022-06-28] MEDS ORDERED: LIRA0.6P2 SQ (11:31)
[2022-06-28] MEDS ORDERED: DICL100G30 TOP (11:31)
[2022-06-28] MEDS ORDERED: INSU100I31 SUBCUT (11:34)
--- NOTE | 2022-06-28 11:54 | NUR ---
DM consult: Patient's A1c has already been addressed, see below. Per EMR pt with T2DM, current A1c is 8.1%. Attempted visit with pt at bedside however pt sleeping. Written DM education with RD contact information left at bedside. Of note DM management appears to be improving as pt with A1c h/o 12.1% 08/15/21, 10.3% 12/16/21, and 9.8% 01/08/22 per EMR. Noted pt on a heart healthy diet with no CHO restriction however CHO controlled diet not warranted at this time as BG levels range 85-144 mg/dL throughout LOS. Will continue to follow. Addendum: 06/28/22 at [address] Amended: Links added.
--- NOTE | 2022-06-28 12:50 | NUR ---
Met with patient in regards to substance use and to see if patient was interested in resources for treatment options. Patient isn't interested in doing treatment right now but was tearful and worried about his heart now from substance use. I told him that I will give him some time to think about considering treatment and that I will come back and see him tomorrow.
[2022-06-28] MEDS ORDERED: ASPI-1071 PO (13:01)
[2022-06-28 15:38] VITALS: BP 108/69
[2022-06-28 18:00] VITALS: BP 108/67
[2022-06-28] MEDS: metoprolol succinate 25mg (24-HOUR) SR. Tablet PO SCH (18:42)
--- NOTE | 2022-06-28 19:04 | NUR ---
Patient in room PCU 3022Q. I have received report from [place] RN and had the opportunity to ask questions and assume patient care. Pt is resting comfortably in bed. Pt on RA. No s/s of distress. Pt declines any c/o pain. BLL, call light wihtin reach, frequently used items in reach, frequent rounding, patient care technician instructor socks on. Will continue to monitor.
[2022-06-28 21:18] VITALS: BP 104/62
[2022-06-28 22:00] VITALS: BP 106/62
[2022-06-28] MEDS: insulin Lispro (HumaLOG) vial - multi-dose SQ SCH (22:43)
[2022-06-28] MEDS: insulin glargine (Lantus) pen - multi-dose SQ SCH (22:46)
[2022-06-29] MEDS ORDERED: VANCOMYCIN LEVEL IV ONE (05:30)
[2022-06-29 06:00] VITALS: BP 98/55
[2022-06-29 06:15] LABS: BASOPHILS % (AUTO) 0.5 % (0-1); EOSINOPHILS # (AUTO) 0.1 X10'3 (0-0.9); EOSINOPHILS % (AUTO) 0.7 % (0-6); HEMATOCRIT 38.3 % (42.0-52.0); HEMOGLOBIN 12.6 g/dl (14.0-17.9); LYMPHOCYTES # (AUTO) 0.8 X10'3 (1.1-4.8); LYMPHOCYTES % (AUTO) 10.2 % (21-51); MEAN CORPUSCULAR HEMOGLOBIN 30.5 PG (27.0-31.0); MEAN CORPUSCULAR VOLUME 92.4 FL (78-98); MEAN PLATELET VOLUME 8.2 FL (7.4-10.4); MONOCYTES % (AUTO) 12.7 % (2-12); NEUTROPHILS # (AUTO) 5.7 X10'3 (1.8-7.7); NEUTROPHILS % (AUTO) 75.9 % (42-75); PLATELET COUNT 235 X10'3 (140-440); RED BLOOD COUNT 4.15 X10'6 (4.70-6.10); RED CELL DISTRIBUTION WIDTH 15.8 % (11.5-14.5); WHITE BLOOD COUNT 7.6 X10'3 (4.5-11.0)
--- NOTE | 2022-06-29 06:16 | NUR ---
Problems reprioritized. Patient report given, questions answered & plan of care reviewed with Odalis BARROW. Addendum: 06/29/22 at 0654 by Edwina Truong RN Report given isaac Nj RN
[2022-06-29 06:27] LABS: ALANINE AMINOTRANSFERASE 8 U/L (12-78); ALBUMIN/GLOBULIN RATIO 0.5 (1.1-1.5); ALKALINE PHOSPHATASE 131 IU/L (46-116); ANION GAP 11 (8-16); ASPARTATE AMINO TRANSFERASE 24 U/L (10-37); BILIRUBIN,TOTAL 0.6 MG/DL (0.1-1.0); BLOOD UREA NITROGEN 36 MG/DL (7-18); BUN/CREATININE RATIO 28.8 (5.4-32.0); CALCIUM 8.8 MG/DL (8.5-10.1); CHLORIDE 101 MMOL/L (99-107); CREATININE 1.25 MG/DL (0.60-1.10); GLUCOSE 68 MG/DL (70-104); MAGNESIUM 1.4 MG/DL (1.5-2.4); PHOSPHORUS 4.5 MG/DL (2.3-4.5); POTASSIUM 4.3 MMOL/L (3.5-5.1); SODIUM 138 MMOL/L (135-145); TOTAL CARBON DIOXIDE 26.4 MMOL/L (24-32); VANCOMYCIN,TROUGH 15.5 UG/ML (6.0-14.0); eGFR 59 ML/MIN
[2022-06-29] MEDS: vancomycin/NS 1 GM ADD-VANTAGE 250 ML IV SCH ×2 (06:57→17:45)
[2022-06-29] MEDS: K and/or MAG REPLACEMENT MC SCH ×2 (08:00→20:00)
[2022-06-29] MEDS: metoprolol succinate 25mg (24-HOUR) SR. Tablet PO SCH (09:22)
[2022-06-29] MEDS: lisinopril 5mg tablet PO SCH (09:22)
[2022-06-29] MEDS: aspirin 81mg, enteric-coated 1 TAB TABLET.DR PO SCH (09:22)
[2022-06-29] MEDS: docusate sod 100mg capsule PO SCH ×2 (09:22→20:00)
[2022-06-29] MEDS: enoxaparin 40mg/0.4ml syringe SUBCUT SCH (09:23)
[2022-06-29] MEDS: magnesium Cl slow-release 64mg tablet PO PRN (09:36)
[2022-06-29] MEDS: furosemide 10 MG/1 ML 10ml inj IV SCH ×2 (09:36→22:01)
[2022-06-29] MEDS: CefTRIAXone/D5W-Rocephin 1gm 50 ML IV SCH (09:37)
[2022-06-29] MEDS: MESSAGE TO NURSING PO NR (10:58)
[2022-06-29 11:26] VITALS: BP 112/73
[2022-06-29] MEDS: acetaminophen 325mg tablet PO PRN (16:01)
[2022-06-29 16:03] VITALS: BP 111/72
--- NOTE | 2022-06-29 16:07 | NUR ---
Patient's temp is 102.4 and HR-106. Other vitals stable. see chart. Patient given tylenol and cooling cares. Doctor Eriberto made aware of temperature via pager. Awaiting return call. Patient is already on IV antibiotics.
[2022-06-29 18:00] VITALS: BP 85/53
--- NOTE | 2022-06-29 18:29 | NUR ---
Patient in room U 3025. I have received report from PUSHPA MOROCHO and had the opportunity to ask questions and assume patient care. Addendum: 06/29/22 at 1830 by Gayla Pruett RN Amended: Links added.
[2022-06-29] MEDS: insulin glargine (Lantus) pen - multi-dose SQ SCH (21:00)
[2022-06-29 22:30] VITALS: BP 129/75
[2022-06-30 02:40] VITALS: BP 133/76
[2022-06-30] MEDS: acetaminophen 325mg tablet PO PRN (03:17)
[2022-06-30] MEDS: vancomycin/NS 1 GM ADD-VANTAGE 250 ML IV SCH ×2 (05:30→19:45)
[2022-06-30 06:00] VITALS: BP 121/85
--- NOTE | 2022-06-30 06:27 | NUR ---
Patient in room PCU 3025. I have received report from Gayla BARROW and had the opportunity to ask questions and assume patient care.
--- NOTE | 2022-06-30 06:50 | NUR ---
Problems reprioritized. Patient report given, questions answered & plan of care reviewed with PUSHPA YUSUF. Addendum: 06/30/22 at 0651 by Gayla Pruett RN Amended: Links added.
[2022-06-30 07:09] LABS: BASOPHILS # (AUTO) 0.1 X10'3 (0-0.2); EOSINOPHILS % (AUTO) 0.2 % (0-6); HEMATOCRIT 36.3 % (42.0-52.0); LYMPHOCYTES # (AUTO) 0.6 X10'3 (1.1-4.8); MEAN CORPUSCULAR HEMOGLOBIN 30.2 PG (27.0-31.0); MEAN CORPUSCULAR HGB CONC 33.2 g/dL (33.0-36.5); MEAN CORPUSCULAR VOLUME 91.1 FL (78-98); MEAN PLATELET VOLUME 8.9 FL (7.4-10.4); MONOCYTES % (AUTO) 17.6 % (2-12); NEUTROPHILS # (AUTO) 3.9 X10'3 (1.8-7.7); NEUTROPHILS % (AUTO) 70.2 % (42-75); PLATELET COUNT 199 X10'3 (140-440); RED BLOOD COUNT 3.98 X10'6 (4.70-6.10); RED CELL DISTRIBUTION WIDTH 15.4 % (11.5-14.5); WHITE BLOOD COUNT 5.5 X10'3 (4.5-11.0)
[2022-06-30 07:33] LABS: ALANINE AMINOTRANSFERASE 16 U/L (12-78); ALBUMIN/GLOBULIN RATIO 0.5 (1.1-1.5); ALKALINE PHOSPHATASE 143 IU/L (46-116); ANION GAP 8 (8-16); ASPARTATE AMINO TRANSFERASE 27 U/L (10-37); BILIRUBIN,TOTAL 0.6 MG/DL (0.1-1.0); BLOOD UREA NITROGEN 42 MG/DL (7-18); BUN/CREATININE RATIO 33.9 (5.4-32.0); CALCIUM 8.3 MG/DL (8.5-10.1); CHLORIDE 99 MMOL/L (99-107); CREATININE 1.24 MG/DL (0.60-1.10); GLUCOSE 126 MG/DL (70-104); MAGNESIUM 1.3 MG/DL (1.5-2.4); PHOSPHORUS 3.8 MG/DL (2.3-4.5); POTASSIUM 4.1 MMOL/L (3.5-5.1); SODIUM 136 MMOL/L (135-145); TOTAL CARBON DIOXIDE 28.9 MMOL/L (24-32); TOTAL PROTEIN 5.9 G/DL (6.4-8.2); eGFR 59 ML/MIN
[2022-06-30] MEDS: docusate sod 100mg capsule PO SCH ×2 (08:00→19:45)
[2022-06-30] MEDS: K and/or MAG REPLACEMENT MC SCH ×2 (08:00→19:45)
[2022-06-30] MEDS: furosemide 10 MG/1 ML 10ml inj IV SCH ×2 (08:49→19:43)
[2022-06-30] MEDS: metoprolol succinate 25mg (24-HOUR) SR. Tablet PO SCH (08:51)
[2022-06-30] MEDS: CefTRIAXone/D5W-Rocephin 1gm 50 ML IV SCH (08:51)
[2022-06-30] MEDS: lisinopril 5mg tablet PO SCH (08:51)
[2022-06-30] MEDS: enoxaparin 40mg/0.4ml syringe SUBCUT SCH (08:51)
[2022-06-30] MEDS: aspirin 81mg, enteric-coated 1 TAB TABLET.DR PO SCH (08:51)
--- NOTE | 2022-06-30 15:12 | NUR ---
PAged Dr. Wei regarding patients low BP. He has had a few lower blood pressures and it has stayed in the 80s systolic. Message: [id number], Jacey Mahan. Pt has had multiple low BP currently 85/47 (56), [id number]
[2022-06-30 18:00] VITALS: BP 105/67
--- NOTE | 2022-06-30 18:48 | NUR ---
Patient in room U 3025. I have received report from PUSHPA YUSUF and had the opportunity to ask questions and assume patient care. Addendum: 06/30/22 at 1849 by Gayla Pruett RN Amended: Links added.
--- NOTE | 2022-06-30 19:14 | NUR ---
Problems reprioritized. Patient report given, questions answered & plan of care reviewed with Anival BARROW, patient stable at transfer of care.
[2022-06-30] MEDS: insulin Lispro (HumaLOG) vial - multi-dose SQ SCH (19:39)
[2022-06-30] MEDS: insulin glargine (Lantus) pen - multi-dose SQ SCH (21:46)
[2022-06-30 22:00] VITALS: BP 93/55
[2022-07-01 02:00] VITALS: BP 104/68
[2022-07-01 06:40] LABS: BASOPHILS # (AUTO) 0.1 X10'3 (0-0.2); BASOPHILS % (AUTO) 0.8 % (0-1); EOSINOPHILS % (AUTO) 0.6 % (0-6); HEMATOCRIT 39.1 % (42.0-52.0); HEMOGLOBIN 13.1 g/dl (14.0-17.9); MEAN CORPUSCULAR HEMOGLOBIN 31.4 PG (27.0-31.0); MEAN CORPUSCULAR HGB CONC 33.6 g/dL (33.0-36.5); MEAN CORPUSCULAR VOLUME 93.3 FL (78-98); MEAN PLATELET VOLUME 8.8 FL (7.4-10.4); MONOCYTES # (AUTO) 1.3 X10'3 (0-0.9); MONOCYTES % (AUTO) 17.3 % (2-12); NEUTROPHILS % (AUTO) 68.3 % (42-75); PLATELET COUNT 188 X10'3 (140-440); RED BLOOD COUNT 4.18 X10'6 (4.70-6.10); RED CELL DISTRIBUTION WIDTH 15.3 % (11.5-14.5); WHITE BLOOD COUNT 7.3 X10'3 (4.5-11.0)
[2022-07-01 06:46] LABS: ALANINE AMINOTRANSFERASE 13 U/L (12-78); ALBUMIN 2.1 G/DL (3.4-5.0); ALBUMIN/GLOBULIN RATIO 0.5 (1.1-1.5); ALKALINE PHOSPHATASE 141 IU/L (46-116); ANION GAP 8 (8-16); ASPARTATE AMINO TRANSFERASE 28 U/L (10-37); BILIRUBIN,TOTAL 0.5 MG/DL (0.1-1.0); BLOOD UREA NITROGEN 47 MG/DL (7-18); BUN/CREATININE RATIO 37.6 (5.4-32.0); CALCIUM 8.6 MG/DL (8.5-10.1); CHLORIDE 98 MMOL/L (99-107); CREATININE 1.25 MG/DL (0.60-1.10); GLUCOSE 60 MG/DL (70-104); MAGNESIUM 1.4 MG/DL (1.5-2.4); PHOSPHORUS 3.7 MG/DL (2.3-4.5); POTASSIUM 4.3 MMOL/L (3.5-5.1); SODIUM 136 MMOL/L (135-145); TOTAL CARBON DIOXIDE 30.1 MMOL/L (24-32); TOTAL PROTEIN 6.3 G/DL (6.4-8.2); eGFR 59 ML/MIN
--- NOTE | 2022-07-01 06:46 | NUR ---
Problems reprioritized. Patient report given, questions answered & plan of care reviewed with PUSHPA PROCTOR. Addendum: 07/01/22 at 0647 by Gayla Pruett RN Amended: Links added.
[2022-07-01 07:00] VITALS: BP 119/68
--- NOTE | 2022-07-01 07:17 | NUR ---
Patient in room PCU 3025. I have received report from Gayla BARROW and had the opportunity to ask questions and assume patient care.
[2022-07-01 07:39] LABS: PLATELET ESTIMATE NORMAL; TOTAL CELLS COUNTED 100
[2022-07-01] MEDS: furosemide 10 MG/1 ML 10ml inj IV SCH ×2 (07:58→20:21)
[2022-07-01] MEDS: K and/or MAG REPLACEMENT MC SCH ×3 (08:00→20:00)
[2022-07-01] MEDS: metoprolol succinate 25mg (24-HOUR) SR. Tablet PO SCH (08:00)
[2022-07-01] MEDS: enoxaparin 40mg/0.4ml syringe SUBCUT SCH (08:00)
[2022-07-01] MEDS: aspirin 81mg, enteric-coated 1 TAB TABLET.DR PO SCH (08:01)
[2022-07-01] MEDS: docusate sod 100mg capsule PO SCH ×2 (08:01→20:21)
[2022-07-01] MEDS: lisinopril 5mg tablet PO SCH (08:01)
[2022-07-01] MEDS: vancomycin/NS 1 GM ADD-VANTAGE 250 ML IV SCH ×2 (08:02→20:21)
--- NOTE | 2022-07-01 09:09 | NUR ---
Initial: Pt admitted w/ Sepsis, RLE cellulitis, and CHF per EMR. Currently on Heart Healthy diet w/ ~90% intake of meals likely meeting est needs at this time. Consider addition of Carb control diet given A1c. LBM 06/29 receiving routine colace. No nutrition intervention implemented at this time, will continue to monitor. Recs 1. Continue Heart Healthy diet; consider Carb control 2. Bowel care per rx 3. Scaled wts Addendum: 07/01/22 at [address] Amended: Links added.
[2022-07-01] MEDS: CefTRIAXone/D5W-Rocephin 1gm 50 ML IV SCH (10:03)
[2022-07-01 11:00] VITALS: BP 107/68
[2022-07-01] MEDS: insulin Lispro (HumaLOG) vial - multi-dose SQ SCH ×2 (14:22→20:19)
[2022-07-01 15:00] VITALS: BP 86/50
[2022-07-01] MEDS ORDERED: magnesium 2GM in 50ml NS 50 ML IV PRN (15:50)
[2022-07-01] MEDS ORDERED: magnesium 4gm in 100ml NS 100 ML IV PRN (15:50)
[2022-07-01] MEDS ORDERED: magnesium Cl slow-release 64mg tablet PO PRN (15:50)
[2022-07-01 18:00] VITALS: BP 93/53
--- NOTE | 2022-07-01 18:23 | NUR ---
Patient in room U 3025. I have received report from PUSHPA PROCTOR and had the opportunity to ask questions and assume patient care. Addendum: 07/01/22 at 1823 by Gayla Pruett RN Amended: Links added.
--- NOTE | 2022-07-01 18:34 | NUR ---
Problems reprioritized. Patient report given, questions answered & plan of care reviewed with Gayla BARROW.
[2022-07-01 22:00] VITALS: BP 105/53
--- NOTE | 2022-07-01 22:00 | NUR ---
hs sandwich given and milk and lantus blood sugar 95. Addendum: 07/01/22 at 0513 by Gayla Pruett RN Amended: Links added.
[2022-07-01] MEDS: insulin glargine (Lantus) pen - multi-dose SQ SCH (22:41)
[2022-07-02] VITALS (7 sets, daily range): BP systolic 74–118; BP diastolic 41–81
--- NOTE | 2022-07-02 01:53 | NUR ---
resting without changes.
[2022-07-02 05:47] LABS: BASOPHILS % (AUTO) 0.5 % (0-1); EOSINOPHILS # (AUTO) 0.2 X10'3 (0-0.9); EOSINOPHILS % (AUTO) 1.9 % (0-6); HEMATOCRIT 38.2 % (42.0-52.0); HEMOGLOBIN 12.9 g/dl (14.0-17.9); LYMPHOCYTES # (AUTO) 0.9 X10'3 (1.1-4.8); LYMPHOCYTES % (AUTO) 11.6 % (21-51); MEAN CORPUSCULAR HEMOGLOBIN 30.9 PG (27.0-31.0); MEAN CORPUSCULAR HGB CONC 33.6 g/dL (33.0-36.5); MEAN CORPUSCULAR VOLUME 91.9 FL (78-98); MEAN PLATELET VOLUME 8.9 FL (7.4-10.4); MONOCYTES % (AUTO) 12.2 % (2-12); NEUTROPHILS # (AUTO) 5.9 X10'3 (1.8-7.7); NEUTROPHILS % (AUTO) 73.8 % (42-75); PLATELET COUNT 181 X10'3 (140-440); RED BLOOD COUNT 4.16 X10'6 (4.70-6.10); RED CELL DISTRIBUTION WIDTH 15.3 % (11.5-14.5)
[2022-07-02 06:06] LABS: ANION GAP 6 (8-16); BLOOD UREA NITROGEN 47 MG/DL (7-18); BUN/CREATININE RATIO 43.1 (5.4-32.0); CALCIUM 8.4 MG/DL (8.5-10.1); CHLORIDE 99 MMOL/L (99-107); CREATININE 1.09 MG/DL (0.60-1.10); GLUCOSE 96 MG/DL (70-104); POTASSIUM 3.6 MMOL/L (3.5-5.1); SODIUM 134 MMOL/L (135-145); TOTAL CARBON DIOXIDE 29.2 MMOL/L (24-32); eGFR 69 ML/MIN
[2022-07-02 06:07] LABS: ALANINE AMINOTRANSFERASE 17 U/L (12-78); ALBUMIN 1.9 G/DL (3.4-5.0); ALBUMIN/GLOBULIN RATIO 0.5 (1.1-1.5); ALKALINE PHOSPHATASE 154 IU/L (46-116); ASPARTATE AMINO TRANSFERASE 33 U/L (10-37); BILIRUBIN,TOTAL 0.4 MG/DL (0.1-1.0); MAGNESIUM 1.7 MG/DL (1.5-2.4); PHOSPHORUS 4.2 MG/DL (2.3-4.5); TOTAL PROTEIN 5.9 G/DL (6.4-8.2)
--- NOTE | 2022-07-02 06:29 | NUR ---
Problems reprioritized. Patient report given, questions answered & plan of care reviewed with Mackenzie Kathleen. Addendum: 07/02/22 at 0631 by Gayla Pruett RN Amended: Links added.
--- NOTE | 2022-07-02 06:45 | NUR ---
Patient in room PCU 3025. I have received report from Gayla BARROW and had the opportunity to ask questions and assume patient care. Pt resting in bed in no acute distress.
[2022-07-02] MEDS: K and/or MAG REPLACEMENT MC SCH ×4 (08:00→19:42)
[2022-07-02] MEDS: CefTRIAXone/D5W-Rocephin 1gm 50 ML IV SCH (08:40)
[2022-07-02] MEDS: vancomycin/NS 1 GM ADD-VANTAGE 250 ML IV SCH ×2 (08:40→19:36)
[2022-07-02] MEDS: aspirin 81mg, enteric-coated 1 TAB TABLET.DR PO SCH (08:41)
[2022-07-02] MEDS: docusate sod 100mg capsule PO SCH ×2 (08:41→19:42)
[2022-07-02] MEDS: lisinopril 5mg tablet PO SCH (08:41)
[2022-07-02] MEDS: metoprolol succinate 25mg (24-HOUR) SR. Tablet PO SCH (08:41)
[2022-07-02] MEDS: enoxaparin 40mg/0.4ml syringe SUBCUT SCH (08:41)
[2022-07-02] MEDS: insulin Lispro (HumaLOG) vial - multi-dose SQ SCH ×3 (08:45→19:30)
[2022-07-02] MEDS ORDERED: METO-395 PO (16:19)
[2022-07-02] MEDS ORDERED: LACT1CAP26 PO (16:19)
[2022-07-02] MEDS ORDERED: LINE600T12 PO (16:19)
--- NOTE | 2022-07-02 17:16 | NUR ---
teodora still not brought up from pharmacy will request again
--- NOTE | 2022-07-02 17:47 | NUR ---
WOODROW cooley on patient since early this afternoon. Abdominal binder at bedside for working with PT
--- NOTE | 2022-07-02 18:28 | NUR ---
Problems reprioritized. Patient report given, questions answered & plan of care reviewed with PAt RN. Patient resting in bed in no acute distress.
--- NOTE | 2022-07-02 19:30 | NUR ---
pt agrees not to get out of bed without help; call light in reach Addendum: 07/03/22 at 0444 by Rachael Nieto RN Amended: Links added.
[2022-07-02] MEDS: fludrocortisone acetate 0.1mg tablet PO SCH (19:39)
[2022-07-02] MEDS: insulin glargine (Lantus) pen - multi-dose SQ SCH (23:38)
[2022-07-03 03:00] VITALS: BP 113/61
--- NOTE | 2022-07-03 06:23 | NUR ---
Patient in room U 3025. I have received report from Radha RN and had the opportunity to ask questions and assume patient care.Patient is sleeping in bed and in no acute distress.
[2022-07-03 07:00] VITALS: BP 121/66
[2022-07-03] MEDS: vancomycin/NS 1 GM ADD-VANTAGE 250 ML IV SCH (07:59)
[2022-07-03] MEDS: enoxaparin 40mg/0.4ml syringe SUBCUT SCH (08:00)
[2022-07-03] MEDS ORDERED: metoprolol succinate 25mg (24-HOUR) SR. Tablet PO SCH (08:00)
[2022-07-03] MEDS: docusate sod 100mg capsule PO SCH (08:00)
[2022-07-03] MEDS: K and/or MAG REPLACEMENT MC SCH ×2 (08:00)
[2022-07-03] MEDS: lisinopril 5mg tablet PO SCH (08:00)
[2022-07-03] MEDS: CefTRIAXone/D5W-Rocephin 1gm 50 ML IV SCH (08:00)
[2022-07-03] MEDS: aspirin 81mg, enteric-coated 1 TAB TABLET.DR PO SCH (08:00)
[2022-07-03] MEDS: fludrocortisone acetate 0.1mg tablet PO SCH (08:01)
[2022-07-03 08:53] LABS: BASOPHILS # (AUTO) 0.1 X10'3 (0-0.2); BASOPHILS % (AUTO) 0.9 % (0-1); EOSINOPHILS # (AUTO) 0.1 X10'3 (0-0.9); HEMATOCRIT 38.3 % (42.0-52.0); HEMOGLOBIN 12.7 g/dl (14.0-17.9); LYMPHOCYTES # (AUTO) 1.1 X10'3 (1.1-4.8); LYMPHOCYTES % (AUTO) 17.8 % (21-51); MEAN CORPUSCULAR HEMOGLOBIN 30.8 PG (27.0-31.0); MEAN CORPUSCULAR HGB CONC 33.3 g/dL (33.0-36.5); MEAN CORPUSCULAR VOLUME 92.7 FL (78-98); MEAN PLATELET VOLUME 8.8 FL (7.4-10.4); MONOCYTES # (AUTO) 0.7 X10'3 (0-0.9); MONOCYTES % (AUTO) 10.7 % (2-12); NEUTROPHILS # (AUTO) 4.3 X10'3 (1.8-7.7); NEUTROPHILS % (AUTO) 68.6 % (42-75); PLATELET COUNT 203 X10'3 (140-440); RED BLOOD COUNT 4.13 X10'6 (4.70-6.10); RED CELL DISTRIBUTION WIDTH 15.3 % (11.5-14.5); WHITE BLOOD COUNT 6.3 X10'3 (4.5-11.0)
[2022-07-03 09:08] LABS: ALANINE AMINOTRANSFERASE 19 U/L (12-78); ALBUMIN 1.9 G/DL (3.4-5.0); ALBUMIN/GLOBULIN RATIO 0.5 (1.1-1.5); ALKALINE PHOSPHATASE 144 IU/L (46-116); ANION GAP 5 (8-16); ASPARTATE AMINO TRANSFERASE 36 U/L (10-37); BILIRUBIN,TOTAL 0.4 MG/DL (0.1-1.0); BLOOD UREA NITROGEN 40 MG/DL (7-18); BUN/CREATININE RATIO 40.8 (5.4-32.0); CALCIUM 8.3 MG/DL (8.5-10.1); CHLORIDE 102 MMOL/L (99-107); CREATININE 0.98 MG/DL (0.60-1.10); GLUCOSE 113 MG/DL (70-104); SODIUM 139 MMOL/L (135-145); TOTAL CARBON DIOXIDE 32.1 MMOL/L (24-32); eGFR 78 ML/MIN
[2022-07-03 15:00] VITALS: BP 96/53
[2022-07-03] MEDS ORDERED: FLO0.1T PO (16:56)
--- NOTE | 2022-07-03 17:06 | NUR ---
Patient was DC to home and picked up by his brother . PIV was removed with cannula intact. RX were called into pharmacy [facility] . DC instructions and warning s/s were reviewed with the patient and he verbalized understanding. All belongings were sent with pt. Pt was alert, oriented, and appropriate at time of DC . Pt was wheeled to front of building.
== END 2022-07-03 16:52 | disposition home health service (06) | DRG 720 ==
LOC: ER 15:13 → ED HOLD 18:17 → EDBEDREQ 21:49 → PCU 3S 22:06
PROVIDERS: ADMIT Family Medicine; ATTEND Family Medicine
PROC: B32T1ZZ Computerized Tomography (CT Scan) of Left Pulmonary Artery using Low Osmolar Contrast (ICD-10-PCS; principal; 2022-06-27)
PROC: B3201ZZ Computerized Tomography (CT Scan) of Thoracic Aorta using Low Osmolar Contrast (ICD-10-PCS; 2022-06-27)
PROC: B32S1ZZ Computerized Tomography (CT Scan) of Right Pulmonary Artery using Low Osmolar Contrast (ICD-10-PCS; 2022-06-27)
DX: A41.9 Sepsis, unspecified organism (principal); I50.23 Acute on chronic systolic (congestive) heart failure; I42.0 Dilated cardiomyopathy; E11.22 Type 2 diabetes mellitus with diabetic chronic kidney disease; Z20.822 Contact with and (suspected) exposure to COVID-19; E78.00 Pure hypercholesterolemia, unspecified; E86.9 Volume depletion, unspecified; F15.20 Other stimulant dependence, uncomplicated; G40.909 Epilepsy, unspecified, not intractable, without status epilepticus; I42.7 Cardiomyopathy due to drug and external agent; N18.9 Chronic kidney disease, unspecified; I13.0 Hypertensive heart and chronic kidney disease with heart failure and stage 1 through stage 4 chronic kidney disease, or unspecified chronic kidney disease; I95.1 Orthostatic hypotension; L03.115 Cellulitis of right lower limb; L03.116 Cellulitis of left lower limb; Z28.310 Unvaccinated for COVID-19; Z79.899 Other long term (current) drug therapy; Z86.16 Personal history of COVID-19; Z87.891 Personal history of nicotine dependence; Z91.14 Patient's other noncompliance with medication regimen; Z91.19 Patient's noncompliance with other medical treatment and regimen; Z71.51 Drug abuse counseling and surveillance of drug abuser
CPT/HCPCS: 36415; 71045; 71275; 80053; 80061; 80202; 80305; 80320; 81001; 82948; 83036; 83605; 83735; 83880; 84100; 84145; 84484; 85007; 85025; 85610; 85651; 86140; 87040; 87081; 87635; 92508; 92616; 93005; 93306; 93970; 97116; 97162; 97530; 99285; A4314; A4349; A4357; C1758; G0378; J0696; J1650; J1815; J1940; J3370; J3475; J3490; J7050; Q9967